=== PATIENT | male | born 1960 | race African-American/Black ===

== ENCOUNTER 2018-11-29 10:57 | Inpatient (IN) ==
[2018-11-29] MEDS ORDERED: SODIUM CHLORIDE 0.9% 1,000 ML IV STA (13:43)
[2018-11-29 14:14] LABS: Basophils # 0.1 10*3/uL (0.0-0.2); Basophils % 0.7 % (0.0-0.8); Eosinophils # 0.2 10*3/uL (0.0-0.87); Hematocrit 44.4 VOL% (42.0-52.0); Hemoglobin 14.2 GM/DL (14.0-18.0); Immature Granulocytes % 0.5 %; Immature Granulocytes Absolute 0.04 #; Mean Corpuscular Volume 91.5 FL (87-102); Mean Platelet Volume 12.2 FL (9.6-12.0); Monocytes % 5.7 % (1.7-12.7); Neutrophils % 55.1 % (38.7-73.9); Platelet Count 179 T/CUMM (130-400); Red Blood Count 4.85 MC/CUMM (3.8-5.5); Red Cell Distribution Width 12.8 % (9.3-17.3); White Blood Count 8.4 T/CUMM (4-12)
[2018-11-29 14:37] LABS: Alanine Aminotransferase 46 U/L (16-61); Alkaline Phosphatase 90 U/L (45-117); Aspartate Amino Transferase 29 U/L (0-37); Bilirubin,Total < 0.39 MG/DL (0.2-1.0); Blood Urea Nitrogen 24 MG/DL (7-18); Calcium 9.5 MG/DL (8.5-10.1); Glucose 272 MG/DL (74-106)
[2018-11-29] MEDS ORDERED: hydrALAZINE 20 MG/1 ML VIAL IV STA ×2 (14:51→16:40)
[2018-11-29] MEDS ORDERED: DOCUSATE SODIUM 100 MG CAPSULE PO PRN (15:08)
[2018-11-29] MEDS ORDERED: GLUCAGON 1 MG VIAL IM PRN (15:08)
[2018-11-29] MEDS ORDERED: DEXTROSE 50% 25 GM/50 ML VIAL IV PRN (15:08)
[2018-11-29] MEDS ORDERED: ONDANSETRON 4 MG/2 ML VIAL IV PRN (15:08)
[2018-11-29] MEDS ORDERED: HYDROmorphone 2 MG/1 ML VIAL IV PRN (15:17)
[2018-11-29] MEDS ORDERED: VANCOMYCIN INJ 1,000 MG in SODIUM CHLORIDE 0.9% 250 ML IV SCH ×2 (15:30→16:00)
[2018-11-29] MEDS ORDERED: cefTRIAXone 1,000 MG in SODIUM CHLORIDE 0.9% 100 ML IV SCH (15:30)
[2018-11-29] MEDS ORDERED: SODIUM CHLORIDE 0.9% 1,000 ML IV SCH (15:30)
[2018-11-29] MEDS ORDERED: ENOXAPARIN 30 MG/0.3 ML SYRINGE SUBCUT SCH (15:30)
[2018-11-29] MEDS ORDERED: hydrALAZINE 20 MG/1 ML VIAL ONE (15:40)
[2018-11-29 16:05] LABS: Risk Ratio 6.73; Thyroid Stimulating Hormone 0.924 uIU/ml (0.358-3.74)
[2018-11-29] MEDS ORDERED: ceFAZolin 1,000 MG VIAL ONE (16:07)
[2018-11-29] MEDS ORDERED: SODIUM CHLORIDE 0.9% 100 ML IV ONE (16:10)
[2018-11-29] MEDS: cefOXitin 1,000 MG in SYRINGE 1 EACH IV SCH ×2 (16:16→23:28)
[2018-11-29] MEDS ORDERED: NICOTINE 21 MG/24 HR PATCH TRANSDERM PRN (18:00)
[2018-11-29] MEDS: INSULIN LISPRO 100 UNIT/ML SUBCUT SCH ×2 (18:44→22:01)
[2018-11-29] MEDS ORDERED: VANCOMYCIN INJ 1,500 MG in SODIUM CHLORIDE 0.9% 500 ML IV SCH (20:00)
[2018-11-29] MEDS: GABAPENTIN 300 MG CAPSULE PO SCH (20:39)
[2018-11-29] MEDS: CARVEDILOL 12.5 MG TABLET PO SCH (20:39)
[2018-11-29] MEDS ORDERED: SIMVASTATIN 40 MG TABLET PO SCH (21:00)
[2018-11-29] MEDS ORDERED: INSULIN GLARGINE 100 UNIT/ML SUBCUT SCH (21:00)
[2018-11-30 05:12] LABS: Basophils # 0.1 10*3/uL (0.0-0.2); Basophils % 0.6 % (0.0-0.8); Eosinophils # 0.1 10*3/uL (0.0-0.87); Eosinophils % 1.6 % (0.00-10.9); Hemoglobin 12.7 GM/DL (14.0-18.0); Immature Granulocytes % 0.4 %; Immature Granulocytes Absolute 0.04 #; Lymphocytes # 2.7 10*3/uL (1.4-4.0); Lymphocytes % 29.5 % (21.2-54.2); Mean Corpuscular HGB Conc 31.8 GM/DL (32-36); Mean Corpuscular Volume 92.8 FL (87-102); Mean Platelet Volume 12.7 FL (9.6-12.0); Monocytes % 7.3 % (1.7-12.7); Neutrophils % 60.6 % (38.7-73.9); Platelet Count 161 T/CUMM (130-400); Red Blood Count 4.31 MC/CUMM (3.8-5.5); Red Cell Distribution Width 12.9 % (9.3-17.3)
[2018-11-30 05:34] LABS: Albumin 3.5 G/DL (3.4-5.0); Bilirubin,Total 0.4 MG/DL (0.2-1.0); Calcium 8.8 MG/DL (8.5-10.1); Osmolality,Calculated 281.7 MOS/KG (273-304); Total Protein 7.2 G/DL (6.4-8.3)
[2018-11-30] MEDS: INSULIN LISPRO 100 UNIT/ML SUBCUT SCH ×2 (07:36→12:21)
[2018-11-30] MEDS ORDERED: PANTOPRAZOLE 40 MG TABLET PO SCH (09:00)
[2018-11-30] MEDS ORDERED: hydroCHLOROthiazide 12.5 MG CAPSULE PO SCH (09:00)
[2018-11-30] MEDS: GABAPENTIN 300 MG CAPSULE PO SCH (09:23)
[2018-11-30] MEDS ORDERED: LIDOCAINE 1% 20 ML VIAL ONE (09:24)
[2018-11-30] MEDS: CARVEDILOL 12.5 MG TABLET PO SCH ×2 (09:32→11:41)
[2018-11-30] MEDS: cefOXitin 1,000 MG in SYRINGE 1 EACH IV SCH (09:32)
[2018-11-30] MEDS ORDERED: SODIUM CHLORIDE 0.9% 250 ML IV SCH (10:00)
[2018-11-30] MEDS ORDERED: MIDAZOLAM 2 MG/2 ML VIAL ONE (10:54)
[2018-11-30] MEDS ORDERED: LABETALOL 100 MG/20 ML VIAL IV ONE (10:55)
[2018-11-30] MEDS ORDERED: KETAMINE 500 MG/10 ML VIAL ONE (10:55)
[2018-11-30 11:22] VITALS: BP 189/95
== END 2018-11-30 16:40 | disposition home or self-care (01) | DRG 617 ==
LOC: N.ED 10:57 → SUATTDRO 15:08 → SUPCPDRO 15:08 → N.EDINP 15:08 → N.3E 17:28
PROVIDERS: ADMIT Internal Medicine; ATTEND Hospitalist

== ENCOUNTER 2019-01-04 13:11 | Inpatient (IN) ==
[2019-01-04 15:50] LABS: Basophils # 0.1 10*3/uL (0.0-0.2); Basophils % 0.5 % (0.0-0.8); Eosinophils # 0.1 10*3/uL (0.0-0.87); Eosinophils % 0.6 % (0.00-10.9); Hematocrit 43.2 VOL% (42.0-52.0); Hemoglobin 13.1 GM/DL (14.0-18.0); Immature Granulocytes % 0.9 %; Immature Granulocytes Absolute 0.18 #; Lymphocytes # 2.6 10*3/uL (1.4-4.0); Lymphocytes % 13.7 % (21.2-54.2); Mean Corpuscular HGB Conc 30.3 GM/DL (32-36); Mean Corpuscular Volume 93.3 FL (87-102); Mean Platelet Volume 10.9 FL (9.6-12.0); Monocytes % 6.5 % (1.7-12.7); Neutrophils % 77.8 % (38.7-73.9); Platelet Count 271 T/CUMM (130-400); Red Blood Count 4.63 MC/CUMM (3.8-5.5); Red Cell Distribution Width 12.7 % (9.3-17.3); White Blood Count 19.1 T/CUMM (4-12)
[2019-01-04] MEDS ORDERED: LACTATED RINGERS 1,000 ML IV ONE (16:02)
[2019-01-04] MEDS ORDERED: PIPERACILLIN/TAZOBACTAM 3,375 MG in SODIUM CHLORIDE 0.9% 100 ML IV STA ×2 (16:04→16:27)
[2019-01-04 16:14] LABS: Alanine Aminotransferase 31 U/L (16-61); Albumin 3.3 G/DL (3.4-5.0); Alkaline Phosphatase 100 U/L (45-117); Aspartate Amino Transferase 22 U/L (0-37); Bilirubin,Total < 0.39 MG/DL (0.2-1.0); Blood Urea Nitrogen 45 MG/DL (7-18); Calcium 10.2 MG/DL (8.5-10.1); Glucose 298 MG/DL (74-106); Osmolality,Calculated 284.7 MOS/KG (273-304); Total Protein 9.8 G/DL (6.4-8.3)
[2019-01-04 16:19] LABS: Apearance,Urine CLEAR (Clear); Bilirubin,Urine Negative (Negative); Blood, Urine Small mg/dL (Negative); Glucose,Urine (UA) >=500 mg/dL (Negative); Ketones,Urine Negative (Negative); Mucus,Urine Occasional /LPF (Occasional); Nitrite,Urine Negative (Negative); Protein,Urine Negative; RBC,Urine 2 /HPF (0-4); Squamous Epithelial Cell,Urine Occasional /HPF (0-10); Urine Color Yellow (Yellow); Urine Specific Gravity 1.022 (1.001-1.035); Urine Urobilinogen < 2.0 EU/DL (0.2-1.0); WBC,Urine 1 /HPF (0-6)
[2019-01-04] MEDS ORDERED: ACETAMINOPHEN 325 MG TABLET PO PRN (17:22)
[2019-01-04] MEDS ORDERED: ONDANSETRON 4 MG/2 ML VIAL IV PRN (17:22)
[2019-01-04] MEDS ORDERED: DEXTROSE 50% 25 GM/50 ML VIAL IV PRN (17:22)
[2019-01-04] MEDS ORDERED: GLUCAGON 1 MG VIAL IM PRN (17:22)
[2019-01-04] MEDS ORDERED: INSULIN REGULAR 100 UNIT/ML IV STA (17:26)
[2019-01-04] MEDS ORDERED: SODIUM POLYSTYRENE SULFATE 15 GM/60 ML BOTTLE PO ONE (17:26)
[2019-01-04] MEDS ORDERED: CALCIUM GLUCONATE 2,000 MG in SODIUM CHLORIDE 0.9% 100 ML IV ONE (17:27)
[2019-01-04] MEDS ORDERED: INSULIN REGULAR 100 UNIT/ML ONE (18:36)
[2019-01-04] MEDS: SODIUM CHLORIDE 0.9% 1,000 ML IV SCH (22:27)
[2019-01-04] MEDS: INSULIN LISPRO 100 UNIT/ML SUBCUT SCH (22:38)
[2019-01-05] MEDS: MORPHINE 4 MG/1 ML VIAL IV PRN ×4 (00:40→20:11)
[2019-01-05 04:44] LABS: Basophils # 0.1 10*3/uL (0.0-0.2); Basophils % 0.5 % (0.0-0.8); Eosinophils # 0.2 10*3/uL (0.0-0.87); Eosinophils % 0.9 % (0.00-10.9); Hematocrit 38.1 VOL% (42.0-52.0); Hemoglobin 11.9 GM/DL (14.0-18.0); Immature Granulocytes % 0.5 %; Immature Granulocytes Absolute 0.08 #; Lymphocytes # 3.2 10*3/uL (1.4-4.0); Lymphocytes % 18.5 % (21.2-54.2); Mean Corpuscular HGB Conc 31.2 GM/DL (32-36); Mean Corpuscular Volume 93.6 FL (87-102); Mean Platelet Volume 11.2 FL (9.6-12.0); Neutrophils % 72.6 % (38.7-73.9); Platelet Count 276 T/CUMM (130-400); Red Blood Count 4.07 MC/CUMM (3.8-5.5); Red Cell Distribution Width 12.6 % (9.3-17.3); White Blood Count 17.5 T/CUMM (4-12)
[2019-01-05 05:26] LABS: Calcium 9.8 MG/DL (8.5-10.1); Osmolality,Calculated 274.5 MOS/KG (273-304); Risk Ratio 4.12; Thyroid Stimulating Hormone 0.774 uIU/ml (0.358-3.74); VLDL CHOLESTEROL 44.8 MG/DL
[2019-01-05] MEDS ORDERED: SODIUM POLYSTYRENE SULFATE 15 GM/60 ML BOTTLE PO ONE ×2 (05:46→07:38)
[2019-01-05] MEDS: SODIUM CHLORIDE 0.9% 1,000 ML IV SCH (06:26)
[2019-01-05] MEDS ORDERED: GLUCAGON 1 MG VIAL IV ONE (07:37)
[2019-01-05] MEDS ORDERED: INSULIN REGULAR 100 UNIT/ML IV ONE (07:37)
[2019-01-05] MEDS ORDERED: SODIUM BICARBONATE 50 MEQ/50 ML VIAL IV ONE (08:19)
[2019-01-05] MEDS: PIPERACILLIN/TAZOBACTAM 3,375 MG in SODIUM CHLORIDE 0.9% 100 ML IV SCH ×2 (10:05→17:56)
[2019-01-05] MEDS: SODIUM CHLORIDE 23.4% CONC INJ 38.5 MEQ, SODIUM BICARB INJ 100 MEQ in STERILE WATER INJ... IV SCH (10:05)
[2019-01-05] MEDS: NICOTINE 21 MG/24 HR PATCH TRANSDERM SCH (10:05)
[2019-01-05] MEDS: PANTOPRAZOLE 40 MG TABLET PO SCH (10:41)
[2019-01-05] MEDS: INSULIN LISPRO 100 UNIT/ML SUBCUT SCH ×4 (10:41→21:57)
[2019-01-06] MEDS: PIPERACILLIN/TAZOBACTAM 3,375 MG in SODIUM CHLORIDE 0.9% 100 ML IV SCH ×3 (01:26→17:11)
[2019-01-06 05:16] LABS: Basophils # 0.1 10*3/uL (0.0-0.2); Basophils % 0.5 % (0.0-0.8); Eosinophils # 0.1 10*3/uL (0.0-0.87); Eosinophils % 0.5 % (0.00-10.9); Hematocrit 34.9 VOL% (42.0-52.0); Hemoglobin 10.9 GM/DL (14.0-18.0); Immature Granulocytes % 1.2 %; Immature Granulocytes Absolute 0.25 #; Lymphocytes # 3.1 10*3/uL (1.4-4.0); Lymphocytes % 14.6 % (21.2-54.2); Mean Corpuscular HGB Conc 31.2 GM/DL (32-36); Mean Corpuscular Volume 92.1 FL (87-102); Neutrophils % 75.2 % (38.7-73.9); Platelet Count 339 T/CUMM (130-400); Red Blood Count 3.79 MC/CUMM (3.8-5.5); Red Cell Distribution Width 12.6 % (9.3-17.3); White Blood Count 21.4 T/CUMM (4-12)
[2019-01-06] MEDS: SODIUM CHLORIDE 23.4% CONC INJ 38.5 MEQ, SODIUM BICARB INJ 100 MEQ in STERILE WATER INJ... IV SCH ×2 (05:36→10:26)
[2019-01-06] MEDS: MORPHINE 4 MG/1 ML VIAL IV PRN ×6 (05:36→21:31)
[2019-01-06 05:42] LABS: Osmolality,Calculated 275.2 MOS/KG (273-304)
[2019-01-06 05:44] LABS: Band Neutrophils 1 % (0-10); Lymphocytes 15 % (20-55); Segmented Neutrophils 79 % (50-85)
[2019-01-06 05:45] LABS: Platelet Estimate Adequate; Total Cells Counted 100
[2019-01-06] MEDS: INSULIN LISPRO 100 UNIT/ML SUBCUT SCH ×4 (08:39→21:28)
[2019-01-06] MEDS: PANTOPRAZOLE 40 MG TABLET PO SCH (08:42)
[2019-01-06] MEDS: NICOTINE 21 MG/24 HR PATCH TRANSDERM SCH (08:42)
[2019-01-06] MEDS ORDERED: BUPIVACAINE MPF 0.25% 30 ML VIAL ONE (09:49)
[2019-01-06] MEDS ORDERED: LIDOCAINE 1% 20 ML VIAL ONE (09:49)
[2019-01-06] MEDS ORDERED: FAMOTIDINE 20 MG/2 ML VIAL IV ONE (10:04)
[2019-01-06] MEDS ORDERED: PROPOFOL 200 MG/20 ML VIAL IV ONE (11:15)
[2019-01-06] MEDS ORDERED: MIDAZOLAM 2 MG/2 ML VIAL ONE (11:16)
[2019-01-06] MEDS ORDERED: METOPROLOL TARTRATE 5 MG/5 ML VIAL IV ONE (11:16)
[2019-01-06] MEDS ORDERED: fentaNYL 100 MCG/2 ML VIAL ONE (11:16)
[2019-01-06] MEDS ORDERED: SEVOFLURANE 1 UNIT/15 MINUTE INH ONE (11:16)
[2019-01-06] MEDS ORDERED: SODIUM CHLORIDE 0.9% 250 ML IV ONE (11:16)
[2019-01-07] MEDS: PIPERACILLIN/TAZOBACTAM 3,375 MG in SODIUM CHLORIDE 0.9% 100 ML IV SCH ×3 (01:17→16:31)
[2019-01-07] MEDS: MORPHINE 4 MG/1 ML VIAL IV PRN ×4 (01:18→19:28)
[2019-01-07 06:04] LABS: Basophils # 0.1 10*3/uL (0.0-0.2); Basophils % 0.4 % (0.0-0.8); Eosinophils # 0.1 10*3/uL (0.0-0.87); Eosinophils % 0.6 % (0.00-10.9); Hematocrit 32.6 VOL% (42.0-52.0); Immature Granulocytes % 1.7 %; Immature Granulocytes Absolute 0.29 #; Lymphocytes # 2.6 10*3/uL (1.4-4.0); Lymphocytes % 14.9 % (21.2-54.2); Mean Corpuscular HGB Conc 30.7 GM/DL (32-36); Mean Corpuscular Volume 92.1 FL (87-102); Mean Platelet Volume 10.8 FL (9.6-12.0); Monocytes % 7.5 % (1.7-12.7); Neutrophils % 74.9 % (38.7-73.9); Platelet Count 294 T/CUMM (130-400); Red Blood Count 3.54 MC/CUMM (3.8-5.5); Red Cell Distribution Width 12.2 % (9.3-17.3); White Blood Count 17.5 T/CUMM (4-12)
[2019-01-07 06:21] LABS: Calcium 9.7 MG/DL (8.5-10.1); Osmolality,Calculated 270.2 MOS/KG (273-304)
[2019-01-07] MEDS: NICOTINE 21 MG/24 HR PATCH TRANSDERM SCH (09:11)
[2019-01-07] MEDS: PANTOPRAZOLE 40 MG TABLET PO SCH (09:12)
[2019-01-07] MEDS: SODIUM HYPOCHLORITE 0.25% IRRIG 473 ML BOTTLE TOP SCH (10:29)
[2019-01-07] MEDS: INSULIN LISPRO 100 UNIT/ML SUBCUT SCH ×4 (10:29→20:45)
[2019-01-07] MEDS ORDERED: SIMETHICONE CHEW 80 MG TABLET PO PRN (20:05)
[2019-01-07] MEDS: DOCUSATE SODIUM 100 MG CAPSULE PO SCH (21:01)
[2019-01-07] MEDS: POLYETHYLENE GLYCOL POWDER 17 GM PACK PO SCH (21:02)
[2019-01-08] MEDS: PIPERACILLIN/TAZOBACTAM 3,375 MG in SODIUM CHLORIDE 0.9% 100 ML IV SCH ×3 (00:07→16:51)
[2019-01-08] MEDS: MORPHINE 4 MG/1 ML VIAL IV PRN ×2 (02:26→10:32)
[2019-01-08 04:47] LABS: Basophils # 0.1 10*3/uL (0.0-0.2); Basophils % 0.4 % (0.0-0.8); Eosinophils # 0.1 10*3/uL (0.0-0.87); Eosinophils % 0.7 % (0.00-10.9); Hemoglobin 9.9 GM/DL (14.0-18.0); Immature Granulocytes % 0.7 %; Lymphocytes # 2.2 10*3/uL (1.4-4.0); Lymphocytes % 16.2 % (21.2-54.2); Mean Corpuscular HGB Conc 30.9 GM/DL (32-36); Mean Corpuscular Volume 91.2 FL (87-102); Mean Platelet Volume 10.9 FL (9.6-12.0); Monocytes % 7.3 % (1.7-12.7); Neutrophils % 74.7 % (38.7-73.9); Platelet Count 290 T/CUMM (130-400); Red Blood Count 3.51 MC/CUMM (3.8-5.5); Red Cell Distribution Width 12.3 % (9.3-17.3); White Blood Count 13.4 T/CUMM (4-12)
[2019-01-08 05:09] LABS: Calcium 9.7 MG/DL (8.5-10.1); Osmolality,Calculated 269.4 MOS/KG (273-304)
[2019-01-08] MEDS: INSULIN LISPRO 100 UNIT/ML SUBCUT SCH ×4 (08:55→21:34)
[2019-01-08] MEDS: POLYETHYLENE GLYCOL POWDER 17 GM PACK PO SCH ×2 (08:56→21:29)
[2019-01-08] MEDS: DOCUSATE SODIUM 100 MG CAPSULE PO SCH ×2 (08:56→21:29)
[2019-01-08] MEDS: PANTOPRAZOLE 40 MG TABLET PO SCH (08:56)
[2019-01-08] MEDS: NICOTINE 21 MG/24 HR PATCH TRANSDERM SCH (09:01)
[2019-01-08] MEDS: SODIUM HYPOCHLORITE 0.25% IRRIG 473 ML BOTTLE TOP SCH (10:34)
[2019-01-08] MEDS: amLODIPine 5 MG TABLET PO SCH (16:53)
[2019-01-08] MEDS: CARVEDILOL 12.5 MG TABLET PO SCH (21:28)
[2019-01-09] MEDS: PIPERACILLIN/TAZOBACTAM 3,375 MG in SODIUM CHLORIDE 0.9% 100 ML IV SCH ×2 (00:50→09:33)
[2019-01-09 04:18] LABS: Basophils # 0.1 10*3/uL (0.0-0.2); Basophils % 0.5 % (0.0-0.8); Eosinophils # 0.2 10*3/uL (0.0-0.87); Eosinophils % 1.2 % (0.00-10.9); Hematocrit 30.8 VOL% (42.0-52.0); Hemoglobin 9.8 GM/DL (14.0-18.0); Immature Granulocytes % 0.7 %; Immature Granulocytes Absolute 0.09 #; Lymphocytes # 2.9 10*3/uL (1.4-4.0); Lymphocytes % 22.5 % (21.2-54.2); Mean Corpuscular HGB Conc 31.8 GM/DL (32-36); Mean Corpuscular Volume 90.1 FL (87-102); Mean Platelet Volume 10.8 FL (9.6-12.0); Monocytes % 7.3 % (1.7-12.7); Neutrophils % 67.8 % (38.7-73.9); Platelet Count 314 T/CUMM (130-400); Red Blood Count 3.42 MC/CUMM (3.8-5.5); Red Cell Distribution Width 12.2 % (9.3-17.3); White Blood Count 12.8 T/CUMM (4-12)
[2019-01-09 04:38] LABS: Calcium 9.8 MG/DL (8.5-10.1); Osmolality,Calculated 276.1 MOS/KG (273-304)
[2019-01-09 05:12] LABS: Platelet Estimate Adequate
[2019-01-09] MEDS: amLODIPine 5 MG TABLET PO SCH (09:31)
[2019-01-09] MEDS: CARVEDILOL 12.5 MG TABLET PO SCH (09:31)
[2019-01-09] MEDS: PANTOPRAZOLE 40 MG TABLET PO SCH (09:31)
[2019-01-09] MEDS: INSULIN LISPRO 100 UNIT/ML SUBCUT SCH ×2 (09:33→11:32)
[2019-01-09] MEDS: DOCUSATE SODIUM 100 MG CAPSULE PO SCH (09:38)
[2019-01-09] MEDS: POLYETHYLENE GLYCOL POWDER 17 GM PACK PO SCH (09:38)
[2019-01-09] MEDS: NICOTINE 21 MG/24 HR PATCH TRANSDERM SCH (09:38)
[2019-01-09] MEDS: SODIUM HYPOCHLORITE 0.25% IRRIG 473 ML BOTTLE TOP SCH (11:18)
[2019-01-09 11:32] VITALS: BP 155/76
== END 2019-01-09 14:38 | disposition home health service (06) | DRG 240 ==
LOC: N.ED 13:11 → N.EDINP 17:21 → SUATTDRO 17:21 → N.3E 19:09
PROVIDERS: ADMIT Internal Medicine; ATTEND Internal Medicine

== ENCOUNTER 2019-02-07 08:20 | Inpatient (IN) ==
[~2019-02-07 08:20] MED LIST: HEPARIN/NACL 0.9% 2 UNITS/ML 2,000 ML IV ONE
[2019-02-07] MEDS ORDERED: ONDANSETRON 4 MG/2 ML VIAL IV ONE (08:25)
[2019-02-07] MEDS ORDERED: fentaNYL 100 MCG/2 ML VIAL IV ONE (08:25)
[2019-02-07] MEDS ORDERED: HEPARIN 5,000 UNIT/1 ML VIAL IV ONE (08:25)
[2019-02-07] MEDS ORDERED: DIAZEPAM 5 MG TABLET PO ONE (08:25)
[2019-02-07] MEDS ORDERED: MIDAZOLAM 2 MG/2 ML VIAL IV ONE (08:25)
[2019-02-07 08:47] LABS: Basophils # 0.1 10*3/uL (0.0-0.2); Basophils % 0.8 % (0.0-0.8); Eosinophils # 0.1 10*3/uL (0.0-0.87); Eosinophils % 1.2 % (0.00-10.9); Hematocrit 38.3 VOL% (42.0-52.0); Hemoglobin 11.8 GM/DL (14.0-18.0); Immature Granulocytes % 0.6 %; Immature Granulocytes Absolute 0.06 #; Lymphocytes # 2.3 10*3/uL (1.4-4.0); Lymphocytes % 23.1 % (21.2-54.2); Mean Corpuscular HGB Conc 30.8 GM/DL (32-36); Mean Corpuscular Volume 91.8 FL (87-102); Mean Platelet Volume 10.9 FL (9.6-12.0); Monocytes % 8.1 % (1.7-12.7); Neutrophils % 66.2 % (38.7-73.9); Platelet Count 236 T/CUMM (130-400); Red Blood Count 4.17 MC/CUMM (3.8-5.5); Red Cell Distribution Width 13.9 % (9.3-17.3)
[2019-02-07 08:56] LABS: PT Patient Result 10.5 SECS; Partial Thromboplastin Time 25.8 SECS (0-40)
[2019-02-07] MEDS: SODIUM CHLORIDE 0.45% 1,000 ML IV SCH (09:15)
[2019-02-07 09:17] LABS: Alanine Aminotransferase 27 U/L (16-61); Albumin 3.4 G/DL (3.4-5.0); Alkaline Phosphatase 85 U/L (45-117); Aspartate Amino Transferase 20 U/L (0-37); Bilirubin,Total < 0.39 MG/DL (0.2-1.0); Blood Urea Nitrogen 12 MG/DL (7-18); Calcium 9.7 MG/DL (8.5-10.1); Glucose 152 MG/DL (74-106); Osmolality,Calculated 285.1 MOS/KG (273-304); Total Protein 8.8 G/DL (6.4-8.3)
[2019-02-07] MEDS ORDERED: DIAZEPAM 5 MG TABLET ONE (09:41)
[2019-02-07] MEDS ORDERED: fentaNYL 100 MCG/2 ML VIAL ONE (10:02)
[2019-02-07] MEDS ORDERED: MIDAZOLAM 2 MG/2 ML VIAL ONE (10:02)
[2019-02-07] MEDS ORDERED: HEPARIN 5,000 UNIT/1 ML VIAL ONE (10:03)
[2019-02-07] MEDS ORDERED: DEXTROSE 50% 25 GM/50 ML VIAL IV PRN (11:16)
[2019-02-07] MEDS ORDERED: GLUCAGON 1 MG VIAL IM PRN (11:16)
[2019-02-07] MEDS: HYDROmorphone 2 MG/1 ML VIAL IV PRN (17:39)
[2019-02-07] MEDS: INSULIN REGULAR 100 UNIT/ML SUBCUT SCH ×2 (17:52→22:16)
[2019-02-08] MEDS: HYDROmorphone 2 MG/1 ML VIAL IV PRN ×8 (00:32→22:38)
[2019-02-08] MEDS ORDERED: VANCOMYCIN 500 MG VIAL ONE (08:40)
[2019-02-08] MEDS ORDERED: HEPARIN 5,000 UNIT/1 ML VIAL ONE (08:40)
[2019-02-08] MEDS: INSULIN REGULAR 100 UNIT/ML SUBCUT SCH ×4 (08:52→20:58)
[2019-02-08] MEDS: SODIUM CHLORIDE 0.45% 1,000 ML IV SCH (08:53)
[2019-02-08] MEDS ORDERED: PHENYLEPHRINE DRIP 20 MG/250 ML PREMIX IV ONE (09:25)
[2019-02-08] MEDS ORDERED: VANCOMYCIN 1,000 MG VIAL ONE (09:51)
[2019-02-08] MEDS ORDERED: PROTAMINE SULFATE 50 MG/5 ML VIAL IV ONE (11:38)
[2019-02-08] MEDS: LACTATED RINGERS 1,000 ML IV SCH ×2 (12:30→17:26)
[2019-02-08] MEDS ORDERED: TISSUE ADHESIVE 1 EACH APPLICATOR TOP ONE (13:06)
[2019-02-08] MEDS ORDERED: ONDANSETRON 4 MG/2 ML VIAL IV PRN ×2 (13:17→14:03)
[2019-02-08] MEDS ORDERED: DESFLURANE 1 UNIT/15 MINUTE INH ONE (13:44)
[2019-02-08] MEDS ORDERED: ROCURONIUM 100 MG/10 ML VIAL IV ONE (13:45)
[2019-02-08] MEDS ORDERED: ETOMIDATE 40 MG/20 ML VIAL IV ONE (13:45)
[2019-02-08] MEDS ORDERED: GLYCOPYRROLATE 0.4 MG/2 ML VIAL ONE (13:45)
[2019-02-08] MEDS ORDERED: ONDANSETRON 4 MG/2 ML VIAL ONE (13:45)
[2019-02-08] MEDS ORDERED: METOPROLOL TARTRATE 5 MG/5 ML VIAL IV ONE (13:45)
[2019-02-08] MEDS ORDERED: fentaNYL 100 MCG/2 ML VIAL ONE (13:45)
[2019-02-08] MEDS ORDERED: NEOSTIGMINE 10 MG/10 ML VIAL ONE (13:46)
[2019-02-08] MEDS ORDERED: LACTATED RINGERS 1,000 ML IV ONE (13:46)
[2019-02-08 13:56] LABS: Hemoglobin 10.6 GM/DL (14.0-18.0)
[2019-02-08 14:22] LABS: Calcium 8.6 MG/DL (8.5-10.1); Osmolality,Calculated 274.2 MOS/KG (273-304)
[2019-02-08] MEDS: GABAPENTIN 300 MG CAPSULE PO SCH ×2 (16:15→20:57)
[2019-02-08] MEDS: glipiZIDE 5 MG TABLET PO SCH (16:15)
[2019-02-08] MEDS ORDERED: VANCOMYCIN INJ 1,000 MG in SODIUM CHLORIDE 0.9% 250 ML IV ONE (16:40)
[2019-02-08] MEDS: CARVEDILOL 12.5 MG TABLET PO SCH (20:57)
[2019-02-08] MEDS: CILOSTAZOL 100 MG TABLET PO SCH (20:57)
[2019-02-09] MEDS: HYDROmorphone 2 MG/1 ML VIAL IV PRN ×2 (01:14→05:04)
[2019-02-09] MEDS: LACTATED RINGERS 1,000 ML IV SCH ×3 (01:19→20:00)
[2019-02-09 04:52] LABS: Hematocrit 30.6 VOL% (42.0-52.0); Hemoglobin 9.6 GM/DL (14.0-18.0)
[2019-02-09 05:20] LABS: Calcium 9.1 MG/DL (8.5-10.1); Osmolality,Calculated 263.7 MOS/KG (273-304)
[2019-02-09] MEDS: glipiZIDE 5 MG TABLET PO SCH ×2 (08:26→17:55)
[2019-02-09] MEDS: CLOPIDOGREL 75 MG TABLET PO SCH (08:26)
[2019-02-09] MEDS: amLODIPine 5 MG TABLET PO SCH (08:26)
[2019-02-09] MEDS: CILOSTAZOL 100 MG TABLET PO SCH ×2 (08:26→21:18)
[2019-02-09] MEDS: CARVEDILOL 12.5 MG TABLET PO SCH ×2 (08:26→21:19)
[2019-02-09] MEDS: ASPIRIN CHEW 81 MG TABLET PO SCH (08:26)
[2019-02-09] MEDS: PANTOPRAZOLE 40 MG TABLET PO SCH (08:27)
[2019-02-09] MEDS: SODIUM HYPOCHLORITE 0.25% IRRIG 473 ML BOTTLE TOP SCH (08:27)
[2019-02-09] MEDS: GABAPENTIN 300 MG CAPSULE PO SCH ×3 (08:27→21:18)
[2019-02-09] MEDS: INSULIN REGULAR 100 UNIT/ML SUBCUT SCH ×4 (08:28→21:19)
[2019-02-09] MEDS ORDERED: HYDROmorphone 2 MG/1 ML VIAL IM PRN (15:58)
[2019-02-09] MEDS: SODIUM CHLORIDE 0.45% 1,000 ML IV SCH (20:00)
[2019-02-10] MEDS: CILOSTAZOL 100 MG TABLET PO SCH (09:27)
[2019-02-10] MEDS: glipiZIDE 5 MG TABLET PO SCH (09:27)
[2019-02-10] MEDS: PANTOPRAZOLE 40 MG TABLET PO SCH (09:27)
[2019-02-10] MEDS: GABAPENTIN 300 MG CAPSULE PO SCH (09:27)
[2019-02-10] MEDS: amLODIPine 5 MG TABLET PO SCH (09:27)
[2019-02-10] MEDS: CLOPIDOGREL 75 MG TABLET PO SCH (09:28)
[2019-02-10] MEDS: ASPIRIN CHEW 81 MG TABLET PO SCH (09:28)
[2019-02-10] MEDS: CARVEDILOL 12.5 MG TABLET PO SCH (09:28)
[2019-02-10] MEDS: INSULIN REGULAR 100 UNIT/ML SUBCUT SCH ×2 (09:28→12:36)
[2019-02-10] MEDS: SODIUM HYPOCHLORITE 0.25% IRRIG 473 ML BOTTLE TOP SCH (09:32)
[2019-02-10 11:12] VITALS: BP 155/88
== END 2019-02-10 13:09 | disposition home or self-care (01) | DRG 254 ==
LOC: N.RAD 08:20 → N.SDSINP 08:21 → N.3E 11:30
PROVIDERS: ADMIT Surgery; ATTEND Surgery

== ENCOUNTER 2019-03-07 12:02 | Inpatient (IN) ==
[2019-03-07 13:14] LABS: Basophils # 0.1 10*3/uL (0.0-0.2); Basophils % 0.7 % (0.0-0.8); Eosinophils # 0.1 10*3/uL (0.0-0.87); Eosinophils % 0.8 % (0.00-10.9); Hematocrit 32.3 VOL% (42.0-52.0); Hemoglobin 9.8 GM/DL (14.0-18.0); Immature Granulocytes % 0.5 %; Immature Granulocytes Absolute 0.06 #; Lymphocytes # 2.6 10*3/uL (1.4-4.0); Lymphocytes % 20.2 % (21.2-54.2); Mean Corpuscular HGB Conc 30.3 GM/DL (32-36); Mean Corpuscular Volume 87.1 FL (87-102); Mean Platelet Volume 10.5 FL (9.6-12.0); Monocytes % 5.8 % (1.7-12.7); Platelet Count 401 T/CUMM (130-400); Red Blood Count 3.71 MC/CUMM (3.8-5.5); Red Cell Distribution Width 14.1 % (9.3-17.3); White Blood Count 12.7 T/CUMM (4-12)
[2019-03-07 13:30] LABS: Alanine Aminotransferase 18 U/L (16-61); Alkaline Phosphatase 81 U/L (45-117); Aspartate Amino Transferase 13 U/L (0-37); Bilirubin,Total < 0.39 MG/DL (0.2-1.0); Blood Urea Nitrogen 13 MG/DL (7-18); Calcium 9.5 MG/DL (8.5-10.1); Glucose 81 MG/DL (74-106); Osmolality,Calculated 277.4 MOS/KG (273-304); Total Protein 8.7 G/DL (6.4-8.3)
[2019-03-07] MEDS ORDERED: SODIUM HYPOCHLORITE 0.25% IRRIG 473 ML BOTTLE TOP STA (14:32)
[2019-03-07] MEDS ORDERED: HYDROmorphone 2 MG/1 ML VIAL IV STA (14:35)
[2019-03-07] MEDS ORDERED: ONDANSETRON 4 MG/2 ML VIAL IV STA (14:35)
[2019-03-07] MEDS ORDERED: BISACODYL 5 MG TABLET PO PRN (14:59)
[2019-03-07] MEDS ORDERED: KETOROLAC 10 MG TABLET PO PRN (14:59)
[2019-03-07] MEDS ORDERED: GLUCAGON 1 MG VIAL IM PRN (14:59)
[2019-03-07] MEDS ORDERED: DEXTROSE 50% 25 GM/50 ML VIAL IV PRN (14:59)
[2019-03-07] MEDS ORDERED: ONDANSETRON 4 MG/2 ML VIAL IV PRN (14:59)
[2019-03-07] MEDS ORDERED: ACETAMINOPHEN 325 MG TABLET PO PRN (14:59)
[2019-03-07] MEDS ORDERED: DIPHENHYDRAMINE ACETAMINOPHEN PO PRN (15:03)
[2019-03-07] MEDS ORDERED: hydrALAZINE 20 MG/1 ML VIAL IV PRN (15:49)
[2019-03-07] MEDS ORDERED: glipiZIDE 5 MG TABLET PO SCH (16:30)
[2019-03-07] MEDS: INSULIN LISPRO 100 UNIT/ML SUBCUT SCH (18:00)
[2019-03-07] MEDS: LACTATED RINGERS 1,000 ML IV SCH (18:34)
[2019-03-07] MEDS: PIPERACILLIN/TAZOBACTAM 3,375 MG in SODIUM CHLORIDE 0.9% 100 ML IV SCH (18:34)
[2019-03-07] MEDS: HYDROmorphone 2 MG/1 ML VIAL IV PRN (18:50)
[2019-03-07] MEDS: CARVEDILOL 12.5 MG TABLET PO SCH (22:00)
[2019-03-07] MEDS: GABAPENTIN 300 MG CAPSULE PO SCH (22:00)
[2019-03-07] MEDS: VANCOMYCIN INJ 1,250 MG in SODIUM CHLORIDE 0.9% 250 ML IV SCH (22:01)
[2019-03-08] MEDS: HYDROmorphone 2 MG/1 ML VIAL IV PRN ×3 (00:28→09:23)
[2019-03-08] MEDS: PIPERACILLIN/TAZOBACTAM 3,375 MG in SODIUM CHLORIDE 0.9% 100 ML IV SCH ×4 (00:32→23:52)
[2019-03-08] MEDS: LACTATED RINGERS 1,000 ML IV SCH ×2 (03:09→16:10)
[2019-03-08 05:04] LABS: Basophils # 0.1 10*3/uL (0.0-0.2); Basophils % 0.8 % (0.0-0.8); Eosinophils # 0.2 10*3/uL (0.0-0.87); Eosinophils % 1.8 % (0.00-10.9); Hematocrit 30.6 VOL% (42.0-52.0); Hemoglobin 9.3 GM/DL (14.0-18.0); Immature Granulocytes % 0.4 %; Immature Granulocytes Absolute 0.05 #; Lymphocytes # 2.9 10*3/uL (1.4-4.0); Lymphocytes % 24.2 % (21.2-54.2); Mean Corpuscular HGB Conc 30.4 GM/DL (32-36); Mean Corpuscular Volume 88.4 FL (87-102); Mean Platelet Volume 10.7 FL (9.6-12.0); Monocytes % 8.8 % (1.7-12.7); Platelet Count 366 T/CUMM (130-400); Red Blood Count 3.46 MC/CUMM (3.8-5.5); Red Cell Distribution Width 14.2 % (9.3-17.3)
[2019-03-08] MEDS: INSULIN LISPRO 100 UNIT/ML SUBCUT SCH ×3 (07:26→16:11)
[2019-03-08] MEDS: CARVEDILOL 12.5 MG TABLET PO SCH ×2 (09:12→20:09)
[2019-03-08] MEDS: GABAPENTIN 300 MG CAPSULE PO SCH ×3 (09:12→20:09)
[2019-03-08] MEDS: amLODIPine 5 MG TABLET PO SCH (09:13)
[2019-03-08] MEDS: SODIUM HYPOCHLORITE 0.25% IRRIG 473 ML BOTTLE TOP SCH (09:13)
[2019-03-08] MEDS: PANTOPRAZOLE 40 MG TABLET PO SCH (09:13)
[2019-03-08] MEDS: VANCOMYCIN INJ 1,250 MG in SODIUM CHLORIDE 0.9% 250 ML IV SCH ×2 (09:19→20:09)
[2019-03-08] MEDS ORDERED: SEVOFLURANE 1 UNIT/15 MINUTE INH ONE (11:50)
[2019-03-08] MEDS ORDERED: PROPOFOL 200 MG/20 ML VIAL IV ONE (11:50)
[2019-03-08] MEDS ORDERED: ACETAMINOPHEN 1,000 MG/100 ML VIAL IV ONE (11:51)
[2019-03-08] MEDS ORDERED: fentaNYL 100 MCG/2 ML VIAL ONE (11:51)
[2019-03-08] MEDS ORDERED: ONDANSETRON 4 MG/2 ML VIAL ONE (11:51)
[2019-03-08] MEDS ORDERED: MIDAZOLAM 2 MG/2 ML VIAL ONE (11:51)
[2019-03-09] MEDS: HYDROmorphone 2 MG/1 ML VIAL IV PRN ×2 (02:15→08:03)
[2019-03-09 05:28] LABS: Basophils # 0.1 10*3/uL (0.0-0.2); Basophils % 0.8 % (0.0-0.8); Eosinophils # 0.2 10*3/uL (0.0-0.87); Eosinophils % 2.6 % (0.00-10.9); Hematocrit 29.7 VOL% (42.0-52.0); Hemoglobin 8.9 GM/DL (14.0-18.0); Immature Granulocytes % 0.4 %; Immature Granulocytes Absolute 0.03 #; Lymphocytes # 2.4 10*3/uL (1.4-4.0); Lymphocytes % 30.7 % (21.2-54.2); Mean Corpuscular Volume 87.4 FL (87-102); Mean Platelet Volume 10.4 FL (9.6-12.0); Monocytes % 6.3 % (1.7-12.7); Neutrophils % 59.2 % (38.7-73.9); Platelet Count 386 T/CUMM (130-400); Red Cell Distribution Width 13.9 % (9.3-17.3); White Blood Count 7.7 T/CUMM (4-12)
[2019-03-09 05:56] LABS: Calcium 9.2 MG/DL (8.5-10.1); Osmolality,Calculated 277.5 MOS/KG (273-304)
[2019-03-09] MEDS: PIPERACILLIN/TAZOBACTAM 3,375 MG in SODIUM CHLORIDE 0.9% 100 ML IV SCH (06:05)
[2019-03-09] MEDS: LACTATED RINGERS 1,000 ML IV SCH ×2 (06:52→10:33)
[2019-03-09] MEDS: GABAPENTIN 300 MG CAPSULE PO SCH ×3 (08:01→21:06)
[2019-03-09] MEDS: amLODIPine 5 MG TABLET PO SCH (08:01)
[2019-03-09] MEDS: CARVEDILOL 12.5 MG TABLET PO SCH ×2 (08:01→21:06)
[2019-03-09] MEDS: PANTOPRAZOLE 40 MG TABLET PO SCH (08:02)
[2019-03-09] MEDS: INSULIN LISPRO 100 UNIT/ML SUBCUT SCH ×3 (08:02→17:20)
[2019-03-09] MEDS: SODIUM HYPOCHLORITE 0.25% IRRIG 473 ML BOTTLE TOP SCH ×2 (08:08→10:44)
[2019-03-09] MEDS: VANCOMYCIN INJ 1,250 MG in SODIUM CHLORIDE 0.9% 250 ML IV SCH (10:34)
[2019-03-09] MEDS: CLINDAMYCIN INJ 600 MG in PREMIX 1 EACH IV SCH ×2 (12:27→17:21)
[2019-03-10] MEDS: CLINDAMYCIN INJ 600 MG in PREMIX 1 EACH IV SCH ×5 (00:08→23:51)
[2019-03-10] MEDS: LACTATED RINGERS 1,000 ML IV SCH ×4 (00:30→23:52)
[2019-03-10] MEDS: HYDROmorphone 2 MG/1 ML VIAL IV PRN (05:02)
[2019-03-10 05:34] LABS: Basophils # 0.1 10*3/uL (0.0-0.2); Basophils % 0.6 % (0.0-0.8); Eosinophils # 0.2 10*3/uL (0.0-0.87); Eosinophils % 2.5 % (0.00-10.9); Hematocrit 27.9 VOL% (42.0-52.0); Hemoglobin 8.6 GM/DL (14.0-18.0); Immature Granulocytes % 0.5 %; Immature Granulocytes Absolute 0.04 #; Lymphocytes # 2.4 10*3/uL (1.4-4.0); Lymphocytes % 28.8 % (21.2-54.2); Mean Corpuscular HGB Conc 30.8 GM/DL (32-36); Mean Corpuscular Volume 85.6 FL (87-102); Mean Platelet Volume 10.2 FL (9.6-12.0); Monocytes % 6.8 % (1.7-12.7); Neutrophils % 60.8 % (38.7-73.9); Platelet Count 389 T/CUMM (130-400); Red Blood Count 3.26 MC/CUMM (3.8-5.5); Red Cell Distribution Width 13.8 % (9.3-17.3); White Blood Count 8.3 T/CUMM (4-12)
[2019-03-10] MEDS: INSULIN LISPRO 100 UNIT/ML SUBCUT SCH ×3 (08:35→19:19)
[2019-03-10] MEDS: CARVEDILOL 12.5 MG TABLET PO SCH ×2 (08:37→20:33)
[2019-03-10] MEDS: amLODIPine 5 MG TABLET PO SCH (08:37)
[2019-03-10] MEDS: GABAPENTIN 300 MG CAPSULE PO SCH ×3 (08:37→20:33)
[2019-03-10] MEDS: PANTOPRAZOLE 40 MG TABLET PO SCH (08:37)
[2019-03-10] MEDS: SODIUM HYPOCHLORITE 0.25% IRRIG 473 ML BOTTLE TOP SCH (12:41)
[2019-03-11] MEDS: CLINDAMYCIN INJ 600 MG in PREMIX 1 EACH IV SCH ×3 (06:07→18:33)
[2019-03-11] MEDS: INSULIN LISPRO 100 UNIT/ML SUBCUT SCH ×3 (08:32→16:47)
[2019-03-11] MEDS: GABAPENTIN 300 MG CAPSULE PO SCH ×3 (08:33→21:15)
[2019-03-11] MEDS: CARVEDILOL 12.5 MG TABLET PO SCH ×2 (08:33→21:15)
[2019-03-11] MEDS: amLODIPine 5 MG TABLET PO SCH (08:33)
[2019-03-11] MEDS: PANTOPRAZOLE 40 MG TABLET PO SCH (08:33)
[2019-03-11] MEDS: SODIUM HYPOCHLORITE 0.25% IRRIG 473 ML BOTTLE TOP SCH (09:00)
[2019-03-11] MEDS: LACTATED RINGERS 1,000 ML IV SCH ×2 (14:27→22:40)
[2019-03-11] MEDS: HYDROmorphone 2 MG/1 ML VIAL IV PRN (16:54)
[2019-03-12] MEDS: CLINDAMYCIN INJ 600 MG in PREMIX 1 EACH IV SCH ×2 (00:22→05:40)
[2019-03-12 04:38] LABS: Basophils # 0.1 10*3/uL (0.0-0.2); Basophils % 0.9 % (0.0-0.8); Eosinophils # 0.2 10*3/uL (0.0-0.87); Eosinophils % 2.6 % (0.00-10.9); Hematocrit 30.5 VOL% (42.0-52.0); Hemoglobin 9.4 GM/DL (14.0-18.0); Immature Granulocytes % 0.6 %; Immature Granulocytes Absolute 0.05 #; Lymphocytes % 33.5 % (21.2-54.2); Mean Corpuscular HGB Conc 30.8 GM/DL (32-36); Mean Corpuscular Volume 86.9 FL (87-102); Mean Platelet Volume 10.2 FL (9.6-12.0); Monocytes % 6.2 % (1.7-12.7); Neutrophils % 56.2 % (38.7-73.9); Platelet Count 432 T/CUMM (130-400); Red Blood Count 3.51 MC/CUMM (3.8-5.5); Red Cell Distribution Width 14.2 % (9.3-17.3); White Blood Count 8.9 T/CUMM (4-12)
[2019-03-12] MEDS: LACTATED RINGERS 1,000 ML IV SCH ×3 (04:45→21:10)
[2019-03-12 05:07] LABS: Calcium 9.1 MG/DL (8.5-10.1); Osmolality,Calculated 281.5 MOS/KG (273-304)
[2019-03-12] MEDS: CIPROFLOXACIN INJ 400 MG in PREMIX 1 EACH IV SCH ×2 (09:23→21:15)
[2019-03-12] MEDS: INSULIN LISPRO 100 UNIT/ML SUBCUT SCH ×3 (09:24→16:31)
[2019-03-12] MEDS: PANTOPRAZOLE 40 MG TABLET PO SCH (09:28)
[2019-03-12] MEDS: CARVEDILOL 12.5 MG TABLET PO SCH ×2 (09:28→21:18)
[2019-03-12] MEDS: GABAPENTIN 300 MG CAPSULE PO SCH ×3 (09:28→21:18)
[2019-03-12] MEDS: amLODIPine 5 MG TABLET PO SCH (09:28)
[2019-03-12] MEDS: POTASSIUM CHLORIDE 20 MEQ TABLET PO PRN ×2 (09:29→12:45)
[2019-03-12] MEDS: SODIUM HYPOCHLORITE 0.25% IRRIG 473 ML BOTTLE TOP SCH (09:33)
[2019-03-12] MEDS: HYDROmorphone 2 MG/1 ML VIAL IV PRN (18:44)
[2019-03-13] MEDS: HYDROmorphone 2 MG/1 ML VIAL IV PRN ×6 (00:01→22:01)
[2019-03-13 04:52] LABS: Basophils # 0.1 10*3/uL (0.0-0.2); Eosinophils # 0.2 10*3/uL (0.0-0.87); Eosinophils % 2.2 % (0.00-10.9); Hematocrit 29.9 VOL% (42.0-52.0); Hemoglobin 9.2 GM/DL (14.0-18.0); Immature Granulocytes % 0.5 %; Immature Granulocytes Absolute 0.05 #; Lymphocytes % 31.7 % (21.2-54.2); Mean Corpuscular HGB Conc 30.8 GM/DL (32-36); Mean Corpuscular Volume 86.9 FL (87-102); Mean Platelet Volume 10.1 FL (9.6-12.0); Monocytes % 6.1 % (1.7-12.7); Neutrophils % 58.5 % (38.7-73.9); Platelet Count 411 T/CUMM (130-400); Red Blood Count 3.44 MC/CUMM (3.8-5.5); Red Cell Distribution Width 14.4 % (9.3-17.3); White Blood Count 9.4 T/CUMM (4-12)
[2019-03-13 05:15] LABS: Calcium 9.3 MG/DL (8.5-10.1); Osmolality,Calculated 278.5 MOS/KG (273-304)
[2019-03-13] MEDS ORDERED: LIDOCAINE 1% 20 ML VIAL ONE (07:37)
[2019-03-13] MEDS ORDERED: BUPIVACAINE MPF 0.25% /EPI 30 ML VIAL ONE (07:37)
[2019-03-13] MEDS: LACTATED RINGERS 1,000 ML IV SCH ×3 (08:11→20:20)
[2019-03-13] MEDS ORDERED: HYDROmorphone 2 MG/1 ML VIAL ONE ×2 (08:54→10:16)
[2019-03-13] MEDS ORDERED: hydrALAZINE 20 MG/1 ML VIAL ONE (09:42)
[2019-03-13] MEDS ORDERED: ONDANSETRON 4 MG/2 ML VIAL IV PRN (09:59)
[2019-03-13] MEDS ORDERED: SEVOFLURANE 1 UNIT/15 MINUTE INH ONE (10:06)
[2019-03-13] MEDS ORDERED: PROPOFOL 200 MG/20 ML VIAL IV ONE (10:06)
[2019-03-13] MEDS ORDERED: ONDANSETRON 4 MG/2 ML VIAL ONE ×2 (10:06→10:16)
[2019-03-13] MEDS ORDERED: fentaNYL 100 MCG/2 ML VIAL ONE (10:06)
[2019-03-13] MEDS ORDERED: PHENYLEPHRINE 1 MG/10 ML SYRINGE IV ONE (10:07)
[2019-03-13] MEDS ORDERED: SODIUM CHLORIDE 0.9% 250 ML IV ONE (10:07)
[2019-03-13] MEDS: GABAPENTIN 300 MG CAPSULE PO SCH ×3 (11:41→20:10)
[2019-03-13] MEDS: amLODIPine 5 MG TABLET PO SCH (11:41)
[2019-03-13] MEDS: CIPROFLOXACIN INJ 400 MG in PREMIX 1 EACH IV SCH ×2 (11:41→20:10)
[2019-03-13] MEDS: CARVEDILOL 12.5 MG TABLET PO SCH ×2 (11:41→20:10)
[2019-03-13] MEDS: INSULIN LISPRO 100 UNIT/ML SUBCUT SCH ×3 (11:41→16:57)
[2019-03-13] MEDS: PANTOPRAZOLE 40 MG TABLET PO SCH (11:42)
[2019-03-13] MEDS: SODIUM HYPOCHLORITE 0.25% IRRIG 473 ML BOTTLE TOP SCH (21:28)
[2019-03-14] MEDS: HYDROmorphone 2 MG/1 ML VIAL IV PRN ×4 (02:57→23:46)
[2019-03-14] MEDS: LACTATED RINGERS 1,000 ML IV SCH (03:00)
[2019-03-14 04:54] LABS: Basophils # 0.1 10*3/uL (0.0-0.2); Basophils % 0.5 % (0.0-0.8); Eosinophils # 0.2 10*3/uL (0.0-0.87); Eosinophils % 1.3 % (0.00-10.9); Hematocrit 30.1 VOL% (42.0-52.0); Hemoglobin 9.2 GM/DL (14.0-18.0); Immature Granulocytes % 0.7 %; Immature Granulocytes Absolute 0.09 #; Lymphocytes # 2.1 10*3/uL (1.4-4.0); Lymphocytes % 15.8 % (21.2-54.2); Mean Corpuscular HGB Conc 30.6 GM/DL (32-36); Mean Platelet Volume 10.1 FL (9.6-12.0); Monocytes % 7.2 % (1.7-12.7); Neutrophils % 74.5 % (38.7-73.9); Platelet Count 428 T/CUMM (130-400); Red Cell Distribution Width 14.3 % (9.3-17.3); White Blood Count 13.5 T/CUMM (4-12)
[2019-03-14 05:12] LABS: Calcium 9.5 MG/DL (8.5-10.1)
[2019-03-14] MEDS ORDERED: MAGNESIUM SULF RIDER 2 GM in PREMIX 1 EACH IV ONE (07:31)
[2019-03-14] MEDS: CIPROFLOXACIN INJ 400 MG in PREMIX 1 EACH IV SCH ×2 (09:20→20:53)
[2019-03-14] MEDS: CARVEDILOL 12.5 MG TABLET PO SCH ×2 (09:21→20:53)
[2019-03-14] MEDS: amLODIPine 5 MG TABLET PO SCH (09:21)
[2019-03-14] MEDS: INSULIN LISPRO 100 UNIT/ML SUBCUT SCH ×3 (09:21→18:00)
[2019-03-14] MEDS: GABAPENTIN 300 MG CAPSULE PO SCH ×3 (09:21→20:53)
[2019-03-14] MEDS: PANTOPRAZOLE 40 MG TABLET PO SCH (09:21)
[2019-03-14] MEDS: ALBUTEROL/IPRATROPIUM 3 ML NEB RESP TX SCH ×2 (13:40→19:38)
[2019-03-15] MEDS: ALBUTEROL/IPRATROPIUM 3 ML NEB RESP TX SCH ×4 (01:50→18:53)
[2019-03-15 05:58] LABS: Calcium 9.1 MG/DL (8.5-10.1)
[2019-03-15] MEDS: CIPROFLOXACIN INJ 400 MG in PREMIX 1 EACH IV SCH ×2 (09:32→20:56)
[2019-03-15] MEDS: GABAPENTIN 300 MG CAPSULE PO SCH ×3 (09:34→21:09)
[2019-03-15] MEDS: CARVEDILOL 12.5 MG TABLET PO SCH ×2 (09:34→21:09)
[2019-03-15] MEDS: INSULIN LISPRO 100 UNIT/ML SUBCUT SCH ×3 (09:34→17:28)
[2019-03-15] MEDS: amLODIPine 5 MG TABLET PO SCH (09:34)
[2019-03-15] MEDS: PANTOPRAZOLE 40 MG TABLET PO SCH (09:34)
[2019-03-15] MEDS: HYDROmorphone 2 MG/1 ML VIAL IV PRN ×2 (11:45→18:08)
[2019-03-16] MEDS: ALBUTEROL/IPRATROPIUM 3 ML NEB RESP TX SCH ×2 (00:27→07:06)
[2019-03-16] MEDS: HYDROmorphone 2 MG/1 ML VIAL IV PRN ×2 (04:39→10:11)
[2019-03-16 06:22] LABS: Basophils # 0.1 10*3/uL (0.0-0.2); Basophils % 0.6 % (0.0-0.8); Eosinophils # 0.1 10*3/uL (0.0-0.87); Eosinophils % 0.9 % (0.00-10.9); Hemoglobin 8.9 GM/DL (14.0-18.0); Immature Granulocytes % 0.8 %; Lymphocytes # 2.1 10*3/uL (1.4-4.0); Lymphocytes % 17.9 % (21.2-54.2); Mean Corpuscular HGB Conc 30.7 GM/DL (32-36); Mean Corpuscular Volume 86.1 FL (87-102); Mean Platelet Volume 10.4 FL (9.6-12.0); Monocytes % 8.6 % (1.7-12.7); Neutrophils % 71.2 % (38.7-73.9); Platelet Count 405 T/CUMM (130-400); Red Blood Count 3.37 MC/CUMM (3.8-5.5); Red Cell Distribution Width 14.3 % (9.3-17.3); White Blood Count 11.9 T/CUMM (4-12)
[2019-03-16] MEDS: amLODIPine 5 MG TABLET PO SCH (10:09)
[2019-03-16] MEDS: GABAPENTIN 300 MG CAPSULE PO SCH (10:09)
[2019-03-16] MEDS: CARVEDILOL 12.5 MG TABLET PO SCH (10:09)
[2019-03-16] MEDS: PANTOPRAZOLE 40 MG TABLET PO SCH (10:09)
[2019-03-16] MEDS: INSULIN LISPRO 100 UNIT/ML SUBCUT SCH ×2 (10:10→13:29)
[2019-03-16] MEDS: CIPROFLOXACIN INJ 400 MG in PREMIX 1 EACH IV SCH (10:14)
[2019-03-16 12:15] VITALS: BP 127/81
== END 2019-03-16 14:35 | DRG 240 ==
LOC: N.ED 12:02 → N.EDINP 14:59 → N.3E 16:25
PROVIDERS: ADMIT Surgery; ATTEND Surgery

== ENCOUNTER 2020-08-06 10:15 | Inpatient (IN) ==
[2020-08-06] MEDS ORDERED: VANCOMYCIN INJ 1,000 MG in SODIUM CHLORIDE 0.9% 250 ML IV STA (11:56)
[2020-08-06 13:00] LABS: Basophils # 0.1 10*3/uL (0.0-0.2); Basophils % 0.5 % (0.0-0.8); Eosinophils # 0.2 10*3/uL (0.0-0.87); Eosinophils % 1.1 % (0.00-10.9); Hematocrit 37.1 VOL% (42.0-52.0); Immature Granulocytes % 0.5 %; Immature Granulocytes Absolute 0.08 #; Lymphocytes # 3.3 10*3/uL (1.4-4.0); Lymphocytes % 22.5 % (21.2-54.2); Mean Corpuscular HGB Conc 32.3 GM/DL (32-36); Mean Corpuscular Volume 87.7 FL (87-102); Mean Platelet Volume 10.4 FL (9.6-12.0); Monocytes % 4.7 % (1.7-12.7); Neutrophils % 70.7 % (38.7-73.9); Platelet Count 402 T/CUMM (130-400); Red Blood Count 4.23 MC/CUMM (3.8-5.5); Red Cell Distribution Width 13.1 % (9.3-17.3); White Blood Count 14.8 T/CUMM (4-12)
[2020-08-06 13:16] LABS: Band Neutrophils 3 % (0-10); Eosinophils 1 % (0-10); Lymphocytes 24 % (20-55); Platelet Estimate Normal; Segmented Neutrophils 67 % (50-85); Total Cells Counted 100
[2020-08-06 13:17] LABS: Anisocytosis Slight; Hypersegmented Neutrophil Few
[2020-08-06 13:19] LABS: Alanine Aminotransferase 23 U/L (16-61); Alkaline Phosphatase 108 U/L (45-117); Aspartate Amino Transferase 19 U/L (0-37); Bilirubin,Total < 0.39 MG/DL (0.2-1.0); Blood Urea Nitrogen 15 MG/DL (7-18); Calcium 9.1 MG/DL (8.5-10.1); Carbon Dioxide 28 MMOL/L (21-32); Estimated Glom Filtration Rate 72 ML/MIN; Glucose 292 MG/DL (74-106); Osmolality,Calculated 275.5 MOS/KG (273-304); Potassium 4.1 MMOL/L (3.5-5.1); Sodium 132 MMOL/L (136-145); Total Protein 8.7 G/DL (6.4-8.3)
[2020-08-06] MEDS ORDERED: SODIUM CHLORIDE 0.9% 1,000 ML IV STA (13:30)
[2020-08-06] MEDS ORDERED: ACETAMINOPHEN 325 MG TABLET PO PRN (14:53)
[2020-08-06] MEDS ORDERED: hydrALAZINE 20 MG/1 ML VIAL IV PRN (14:53)
[2020-08-06] MEDS ORDERED: LACTULOSE 20 GM/30 ML UDCUP PO PRN (14:53)
[2020-08-06] MEDS ORDERED: DOCUSATE SODIUM 100 MG CAPSULE PO PRN (14:53)
[2020-08-06] MEDS ORDERED: PIPERACILLIN/TAZOBACTAM 3,375 MG in SODIUM CHLORIDE 0.9% 100 ML IV STA (14:53)
[2020-08-06] MEDS ORDERED: DEXTROSE 50% 25 GM/50 ML VIAL IV PRN (14:53)
[2020-08-06] MEDS ORDERED: ONDANSETRON 4 MG/2 ML VIAL IV PRN (14:53)
[2020-08-06] MEDS ORDERED: GLUCAGON 1 MG VIAL IM PRN (14:53)
[2020-08-06] MEDS ORDERED: SODIUM CHLORIDE 0.9% 2,450 ML IV ONE (16:14)
[2020-08-06] MEDS: INSULIN LISPRO 100 UNIT/ML SUBCUT SCH ×2 (18:24→20:51)
[2020-08-06] MEDS: ENOXAPARIN 40 MG/0.4 ML SYRINGE SUBCUT SCH (21:21)
[2020-08-06] MEDS: PIPERACILLIN/TAZOBACTAM 3,375 MG in SODIUM CHLORIDE 0.9% 100 ML IV SCH (21:23)
[2020-08-06] MEDS: NICOTINE 21 MG/24 HR PATCH TRANSDERM SCH (21:24)
[2020-08-07] MEDS: MORPHINE 4 MG/1 ML VIAL IV PRN ×5 (00:39→22:34)
[2020-08-07] MEDS: VANCOMYCIN INJ 1,250 MG in SODIUM CHLORIDE 0.9% 250 ML IV SCH ×2 (03:35→14:55)
[2020-08-07 05:33] LABS: Basophils # 0.1 10*3/uL (0.0-0.2); Basophils % 0.6 % (0.0-0.8); Eosinophils # 0.2 10*3/uL (0.0-0.87); Eosinophils % 1.3 % (0.00-10.9); Hematocrit 38.8 VOL% (42.0-52.0); Hemoglobin 11.9 GM/DL (14.0-18.0); Immature Granulocytes % 0.9 %; Immature Granulocytes Absolute 0.11 #; Lymphocytes # 3.7 10*3/uL (1.4-4.0); Lymphocytes % 28.5 % (21.2-54.2); Mean Corpuscular HGB Conc 30.7 GM/DL (32-36); Mean Corpuscular Volume 88.8 FL (87-102); Mean Platelet Volume 11.3 FL (9.6-12.0); Monocytes % 6.3 % (1.7-12.7); NRBC # 0.02 10*3/uL; Neutrophils % 62.4 % (38.7-73.9); Platelet Count 348 T/CUMM (130-400); Red Blood Count 4.37 MC/CUMM (3.8-5.5); Red Cell Distribution Width 13.2 % (9.3-17.3); White Blood Count 12.9 T/CUMM (4-12)
[2020-08-07 06:23] LABS: Albumin 2.6 G/DL (3.4-5.0); Bilirubin,Total 0.4 MG/DL (0.2-1.0); Osmolality,Calculated 268.4 MOS/KG (273-304); Potassium 5.4 MMOL/L (3.5-5.1); Total Protein 8.2 G/DL (6.4-8.3)
[2020-08-07 07:23] LABS: Band Neutrophils 1 % (0-10); Hypochromasia 1+; Lymphocytes 27 % (20-55); Microcytosis 1+; Segmented Neutrophils 68 % (50-85); Total Cells Counted 100
[2020-08-07] MEDS: INSULIN LISPRO 100 UNIT/ML SUBCUT SCH ×4 (09:11→21:36)
[2020-08-07] MEDS: NICOTINE 21 MG/24 HR PATCH TRANSDERM SCH (09:11)
[2020-08-07] MEDS: PANTOPRAZOLE 40 MG TABLET PO SCH (09:11)
[2020-08-07] MEDS: SILVER SULFADIAZINE 1% CREAM 25 GM TUBE TOP SCH (09:12)
[2020-08-07] MEDS: ENOXAPARIN 40 MG/0.4 ML SYRINGE SUBCUT SCH (21:08)
[2020-08-07] MEDS: PIPERACILLIN/TAZOBACTAM 3,375 MG in SODIUM CHLORIDE 0.9% 100 ML IV SCH (21:09)
[2020-08-08] MEDS: MORPHINE 4 MG/1 ML VIAL IV PRN ×2 (02:23→08:47)
[2020-08-08] MEDS: VANCOMYCIN INJ 1,250 MG in SODIUM CHLORIDE 0.9% 250 ML IV SCH (02:24)
[2020-08-08] MEDS: PIPERACILLIN/TAZOBACTAM 3,375 MG in SODIUM CHLORIDE 0.9% 100 ML IV SCH ×2 (05:09→15:31)
[2020-08-08 05:42] LABS: Basophils # 0.1 10*3/uL (0.0-0.2); Basophils % 0.5 % (0.0-0.8); Eosinophils # 0.1 10*3/uL (0.0-0.87); Eosinophils % 0.9 % (0.00-10.9); Hematocrit 37.2 VOL% (42.0-52.0); Immature Granulocytes % 0.7 %; Lymphocytes # 3.2 10*3/uL (1.4-4.0); Lymphocytes % 23.8 % (21.2-54.2); Mean Corpuscular HGB Conc 32.3 GM/DL (32-36); Mean Corpuscular Volume 86.9 FL (87-102); Mean Platelet Volume 10.9 FL (9.6-12.0); Monocytes % 8.4 % (1.7-12.7); Neutrophils % 65.7 % (38.7-73.9); Platelet Count 337 T/CUMM (130-400); Red Blood Count 4.28 MC/CUMM (3.8-5.5); White Blood Count 13.6 T/CUMM (4-12)
[2020-08-08 06:07] LABS: Calcium 9.4 MG/DL (8.5-10.1); Potassium 3.7 MMOL/L (3.5-5.1)
[2020-08-08] MEDS: NICOTINE 21 MG/24 HR PATCH TRANSDERM SCH (08:48)
[2020-08-08] MEDS: PANTOPRAZOLE 40 MG TABLET PO SCH (08:48)
[2020-08-08] MEDS: SILVER SULFADIAZINE 1% CREAM 25 GM TUBE TOP SCH (08:49)
[2020-08-08] MEDS: INSULIN LISPRO 100 UNIT/ML SUBCUT SCH ×2 (08:53→11:49)
[2020-08-08 11:52] VITALS: BP 146/89
== END 2020-08-08 14:52 | disposition home health service (06) | DRG 638 ==
LOC: N.ED 10:15 → N.EDINP 14:53
PROVIDERS: ADMIT Internal Medicine; ATTEND Internal Medicine

== ENCOUNTER 2020-09-30 06:16 | Inpatient (IN) ==
[2020-09-30] MEDS ORDERED: ceFAZolin 1,000 MG VIAL ONE (07:24)
[2020-09-30] MEDS ORDERED: DIAZEPAM 5 MG TABLET PO ONE (07:43)
[2020-09-30] MEDS ORDERED: FAMOTIDINE 20 MG TABLET PO ONE (07:43)
[2020-09-30] MEDS ORDERED: LACTATED RINGERS 1,000 ML IV SCH (08:00)
[2020-09-30] MEDS ORDERED: MIDAZOLAM 2 MG/2 ML VIAL ONE (09:35)
[2020-09-30] MEDS ORDERED: propofoL 200 MG/20 ML VIAL IV ONE (09:35)
[2020-09-30] MEDS ORDERED: fentaNYL 100 MCG/2 ML VIAL ONE ×2 (09:35→10:30)
[2020-09-30] MEDS ORDERED: LIDOCAINE 2% 5 ML VIAL ONE (09:35)
[2020-09-30] MEDS ORDERED: DEXMEDETOMIDINE 200 MCG/2 ML VIAL ONE (09:36)
[2020-09-30] MEDS ORDERED: PHENYLEPHRINE 10 MG/1 ML VIAL IV ONE (10:16)
[2020-09-30] MEDS ORDERED: SEVOFLURANE 1 UNIT/15 MINUTE INH ONE ×4 (10:22→11:00)
[2020-09-30] MEDS ORDERED: ONDANSETRON 4 MG/2 ML VIAL ONE (10:22)
[2020-09-30] MEDS ORDERED: ACETAMINOPHEN 1,000 MG/100 ML VIAL IV ONE (10:32)
[2020-09-30] MEDS ORDERED: KETAMINE 500 MG/10 ML VIAL ONE (10:38)
[2020-09-30] MEDS ORDERED: SODIUM CHLORIDE 0.9% 100 ML IV ONE (10:46)
[2020-09-30] MEDS ORDERED: LACTATED RINGERS 1,000 ML IV ONE (10:46)
[2020-09-30] MEDS ORDERED: ALBUTEROL/IPRATROPIUM 3 ML NEB RESP TX PRN (11:09)
[2020-09-30] MEDS ORDERED: ACETAMINOPHEN 325 MG TABLET PO PRN (11:09)
[2020-09-30] MEDS ORDERED: KETOROLAC 15 MG/1 ML VIAL IV PRN (11:09)
[2020-09-30] MEDS ORDERED: GLUCAGON 1 MG VIAL IM PRN (11:09)
[2020-09-30] MEDS ORDERED: ONDANSETRON 4 MG/2 ML VIAL IV PRN (11:09)
[2020-09-30] MEDS ORDERED: DEXTROSE 50% 25 GM/50 ML VIAL IV PRN (11:09)
[2020-09-30] MEDS ORDERED: BISACODYL 5 MG TABLET PO PRN (11:09)
[2020-09-30] MEDS ORDERED: HYDROmorphone 2 MG/1 ML VIAL IV PRN (11:09)
[2020-09-30] MEDS: HYDROmorphone 2 MG/1 ML VIAL IV PRN ×6 (11:41→23:40)
[2020-09-30] MEDS: LACTATED RINGERS 1,000 ML IV SCH ×2 (12:59→21:23)
[2020-09-30] MEDS: INSULIN LISPRO 100 UNIT/ML SUBCUT SCH ×2 (12:59→16:36)
[2020-09-30] MEDS: cefOXitin 2,000 MG in SYRINGE 1 EACH IV SCH ×2 (15:06→21:18)
[2020-09-30] MEDS: GABAPENTIN 300 MG CAPSULE PO SCH ×2 (15:06→20:09)
[2020-09-30] MEDS: glipiZIDE 5 MG TABLET PO SCH (16:36)
[2020-09-30] MEDS: carvediloL 12.5 MG TABLET PO SCH (16:37)
[2020-10-01] MEDS: cefOXitin 2,000 MG in SYRINGE 1 EACH IV SCH (03:40)
[2020-10-01] MEDS: HYDROmorphone 2 MG/1 ML VIAL IV PRN ×4 (03:43→16:41)
[2020-10-01] MEDS: LACTATED RINGERS 1,000 ML IV SCH (04:52)
[2020-10-01 07:45] LABS: Basophils # 0.1 10*3/uL (0.0-0.2); Basophils % 0.4 % (0.0-0.8); Eosinophils # 0.2 10*3/uL (0.0-0.87); Eosinophils % 1.1 % (0.00-10.9); Hematocrit 28.6 VOL% (42.0-52.0); Hemoglobin 8.8 GM/DL (14.0-18.0); Immature Granulocytes % 0.8 %; Immature Granulocytes Absolute 0.12 #; Lymphocytes # 2.1 10*3/uL (1.4-4.0); Lymphocytes % 14.4 % (21.2-54.2); Mean Corpuscular HGB Conc 30.8 GM/DL (32-36); Mean Corpuscular Volume 84.6 FL (87-102); Mean Platelet Volume 10.1 FL (9.6-12.0); Monocytes % 8.9 % (1.7-12.7); Neutrophils % 74.4 % (38.7-73.9); Platelet Count 496 T/CUMM (130-400); Red Blood Count 3.38 MC/CUMM (3.8-5.5); White Blood Count 14.7 T/CUMM (4-12)
[2020-10-01 08:29] LABS: Calcium 9.2 MG/DL (8.5-10.1); Osmolality,Calculated 270.1 MOS/KG (273-304)
[2020-10-01] MEDS: ENOXAPARIN 40 MG/0.4 ML SYRINGE SUBCUT SCH (08:57)
[2020-10-01] MEDS: glipiZIDE 5 MG TABLET PO SCH ×2 (08:58→16:42)
[2020-10-01] MEDS: carvediloL 12.5 MG TABLET PO SCH ×2 (08:58→16:41)
[2020-10-01] MEDS: PANTOPRAZOLE 40 MG TABLET PO SCH (08:58)
[2020-10-01] MEDS: GABAPENTIN 300 MG CAPSULE PO SCH ×3 (08:58→20:20)
[2020-10-01] MEDS: amLODIPine 5 MG TABLET PO SCH (08:58)
[2020-10-01] MEDS: INSULIN LISPRO 100 UNIT/ML SUBCUT SCH ×3 (09:29→16:40)
[2020-10-02] MEDS: HYDROmorphone 2 MG/1 ML VIAL IV PRN ×4 (07:10→18:08)
[2020-10-02] MEDS: PANTOPRAZOLE 40 MG TABLET PO SCH (09:07)
[2020-10-02] MEDS: carvediloL 12.5 MG TABLET PO SCH ×2 (09:07→16:04)
[2020-10-02] MEDS: amLODIPine 5 MG TABLET PO SCH (09:07)
[2020-10-02] MEDS: glipiZIDE 5 MG TABLET PO SCH ×2 (09:07→15:58)
[2020-10-02] MEDS: ENOXAPARIN 40 MG/0.4 ML SYRINGE SUBCUT SCH (09:08)
[2020-10-02] MEDS: INSULIN LISPRO 100 UNIT/ML SUBCUT SCH ×3 (09:08→16:04)
[2020-10-02] MEDS: GABAPENTIN 300 MG CAPSULE PO SCH ×3 (09:08→20:41)
[2020-10-02] MEDS: KETOROLAC 15 MG/1 ML VIAL IV SCH ×3 (11:29→21:40)
[2020-10-03] MEDS: KETOROLAC 15 MG/1 ML VIAL IV SCH ×4 (03:46→22:56)
[2020-10-03 04:57] LABS: Basophils # 0.1 10*3/uL (0.0-0.2); Basophils % 0.4 % (0.0-0.8); Eosinophils # 0.1 10*3/uL (0.0-0.87); Eosinophils % 0.7 % (0.00-10.9); Hematocrit 28.9 VOL% (42.0-52.0); Hemoglobin 9.2 GM/DL (14.0-18.0); Immature Granulocytes % 1.1 %; Immature Granulocytes Absolute 0.18 #; Lymphocytes # 2.5 10*3/uL (1.4-4.0); Lymphocytes % 15.7 % (21.2-54.2); Mean Corpuscular HGB Conc 31.8 GM/DL (32-36); Mean Corpuscular Volume 83.3 FL (87-102); Mean Platelet Volume 9.9 FL (9.6-12.0); Monocytes % 10.9 % (1.7-12.7); Neutrophils % 71.2 % (38.7-73.9); Platelet Count 490 T/CUMM (130-400); Red Blood Count 3.47 MC/CUMM (3.8-5.5); Red Cell Distribution Width 14.2 % (9.3-17.3); White Blood Count 16.1 T/CUMM (4-12)
[2020-10-03 05:28] LABS: Calcium 9.2 MG/DL (8.5-10.1); Osmolality,Calculated 267.4 MOS/KG (273-304); Potassium 4.1 MMOL/L (3.5-5.1)
[2020-10-03] MEDS: HYDROmorphone 2 MG/1 ML VIAL IV PRN ×3 (06:08→20:22)
[2020-10-03] MEDS: ENOXAPARIN 40 MG/0.4 ML SYRINGE SUBCUT SCH (09:09)
[2020-10-03] MEDS: INSULIN LISPRO 100 UNIT/ML SUBCUT SCH ×3 (09:09→16:38)
[2020-10-03] MEDS: GABAPENTIN 300 MG CAPSULE PO SCH ×3 (09:10→20:23)
[2020-10-03] MEDS: amLODIPine 5 MG TABLET PO SCH (09:10)
[2020-10-03] MEDS: PANTOPRAZOLE 40 MG TABLET PO SCH (09:10)
[2020-10-03] MEDS: glipiZIDE 5 MG TABLET PO SCH ×2 (09:10→17:02)
[2020-10-03] MEDS: carvediloL 12.5 MG TABLET PO SCH ×2 (09:11→17:02)
[2020-10-03] MEDS: LEVOFLOXACIN INJ 500 MG in PREMIX 1 EACH IV SCH (12:50)
[2020-10-03] MEDS: CLINDAMYCIN INJ 300 MG in PREMIX 1 EACH IV SCH ×2 (15:50→20:23)
[2020-10-03] MEDS ORDERED: ZALEPLON 5 MG CAPSULE PO PRN (23:05)
[2020-10-04] MEDS: KETOROLAC 15 MG/1 ML VIAL IV SCH ×2 (03:42→09:19)
[2020-10-04] MEDS: CLINDAMYCIN INJ 300 MG in PREMIX 1 EACH IV SCH ×2 (03:43→10:01)
[2020-10-04] MEDS: HYDROmorphone 2 MG/1 ML VIAL IV PRN ×2 (04:58→09:05)
[2020-10-04 05:27] LABS: Basophils # 0.1 10*3/uL (0.0-0.2); Basophils % 0.5 % (0.0-0.8); Eosinophils # 0.1 10*3/uL (0.0-0.87); Eosinophils % 0.7 % (0.00-10.9); Hematocrit 27.2 VOL% (42.0-52.0); Hemoglobin 8.8 GM/DL (14.0-18.0); Immature Granulocytes Absolute 0.15 #; Lymphocytes # 2.2 10*3/uL (1.4-4.0); Lymphocytes % 14.4 % (21.2-54.2); Mean Corpuscular HGB Conc 32.4 GM/DL (32-36); Mean Corpuscular Volume 82.2 FL (87-102); Mean Platelet Volume 10.1 FL (9.6-12.0); Monocytes % 9.5 % (1.7-12.7); Neutrophils % 73.9 % (38.7-73.9); Platelet Count 462 T/CUMM (130-400); Red Blood Count 3.31 MC/CUMM (3.8-5.5); Red Cell Distribution Width 14.1 % (9.3-17.3); White Blood Count 15.2 T/CUMM (4-12)
[2020-10-04 05:46] LABS: Calcium 8.8 MG/DL (8.5-10.1); Osmolality,Calculated 270.1 MOS/KG (273-304); Potassium 3.6 MMOL/L (3.5-5.1)
[2020-10-04] MEDS: INSULIN LISPRO 100 UNIT/ML SUBCUT SCH ×2 (07:30→11:48)
[2020-10-04] MEDS: ENOXAPARIN 40 MG/0.4 ML SYRINGE SUBCUT SCH (09:18)
[2020-10-04] MEDS: amLODIPine 5 MG TABLET PO SCH (09:18)
[2020-10-04] MEDS: glipiZIDE 5 MG TABLET PO SCH (09:18)
[2020-10-04] MEDS: GABAPENTIN 300 MG CAPSULE PO SCH ×2 (09:18→14:30)
[2020-10-04] MEDS: carvediloL 12.5 MG TABLET PO SCH (09:19)
[2020-10-04] MEDS: PANTOPRAZOLE 40 MG TABLET PO SCH (09:19)
[2020-10-04 11:34] VITALS: BP 131/70
[2020-10-04] MEDS: LEVOFLOXACIN INJ 500 MG in PREMIX 1 EACH IV SCH (11:48)
== END 2020-10-04 14:54 | DRG 240 ==
LOC: N.SDSINP 06:16 → N.5E 12:28
PROVIDERS: ADMIT Surgery; ATTEND Surgery

== ENCOUNTER 2020-10-11 09:18 | Inpatient (IN) ==
[2020-10-11] MEDS ORDERED: MORPHINE 4 MG/1 ML VIAL IV STA (09:33)
[2020-10-11] MEDS ORDERED: LACTATED RINGERS 1,000 ML IV SCH (10:00)
[2020-10-11] MEDS ORDERED: DIAZEPAM 5 MG TABLET PO STA (10:33)
[2020-10-11] MEDS ORDERED: DIAZEPAM 5 MG TABLET ONE (10:34)
[2020-10-11] MEDS ORDERED: HYDROmorphone 2 MG/1 ML VIAL ONE (13:09)
[2020-10-11] MEDS ORDERED: ONDANSETRON 4 MG/2 ML VIAL ONE (13:09)
[2020-10-11] MEDS ORDERED: ONDANSETRON 4 MG/2 ML VIAL IV PRN ×2 (13:10→13:26)
[2020-10-11] MEDS: HYDROmorphone 2 MG/1 ML VIAL IV PRN ×5 (13:10→15:41)
[2020-10-11] MEDS ORDERED: hydrALAZINE 20 MG/1 ML VIAL IV ONE (13:18)
[2020-10-11] MEDS ORDERED: MEPERIDINE 25 MG/1 ML VIAL IV ONE (13:18)
[2020-10-11] MEDS ORDERED: MEPERIDINE 25 MG/1 ML VIAL ONE (13:22)
[2020-10-11] MEDS ORDERED: hydrALAZINE 20 MG/1 ML VIAL ONE (13:22)
[2020-10-11] MEDS ORDERED: GLUCAGON 1 MG VIAL IM PRN ×2 (13:26→14:57)
[2020-10-11] MEDS ORDERED: BISACODYL 5 MG TABLET PO PRN (13:26)
[2020-10-11] MEDS ORDERED: KETOROLAC 15 MG/1 ML VIAL IV PRN (13:26)
[2020-10-11] MEDS ORDERED: DEXTROSE 50% 25 GM/50 ML VIAL IV PRN ×2 (13:26→14:57)
[2020-10-11] MEDS ORDERED: ALBUTEROL/IPRATROPIUM 3 ML NEB RESP TX PRN (13:26)
[2020-10-11] MEDS ORDERED: ACETAMINOPHEN 325 MG TABLET PO PRN (13:26)
[2020-10-11] MEDS ORDERED: ZALEPLON 5 MG CAPSULE PO PRN (13:31)
[2020-10-11] MEDS ORDERED: DOCUSATE SODIUM 100 MG CAPSULE PO PRN (13:31)
[2020-10-11] MEDS: LACTATED RINGERS 1,000 ML IV SCH (13:41)
[2020-10-11] MEDS ORDERED: hydrALAZINE 20 MG/1 ML VIAL IV PRN (14:59)
[2020-10-11 15:34] LABS: Basophils # 0.1 10*3/uL (0.0-0.2); Basophils % 0.7 % (0.0-0.8); Eosinophils # 0.1 10*3/uL (0.0-0.87); Eosinophils % 0.6 % (0.00-10.9); Hematocrit 27.9 VOL% (42.0-52.0); Hemoglobin 8.8 GM/DL (14.0-18.0); Immature Granulocytes % 0.7 %; Immature Granulocytes Absolute 0.09 #; Lymphocytes # 2.2 10*3/uL (1.4-4.0); Lymphocytes % 17.7 % (21.2-54.2); Mean Corpuscular HGB Conc 31.5 GM/DL (32-36); Mean Corpuscular Volume 82.3 FL (87-102); Mean Platelet Volume 10.1 FL (9.6-12.0); Monocytes % 7.1 % (1.7-12.7); Neutrophils % 73.2 % (38.7-73.9); Platelet Count 532 T/CUMM (130-400); Red Blood Count 3.39 MC/CUMM (3.8-5.5); Red Cell Distribution Width 14.6 % (9.3-17.3); White Blood Count 12.2 T/CUMM (4-12)
[2020-10-11] MEDS: GABAPENTIN 300 MG CAPSULE PO SCH ×2 (15:41→20:59)
[2020-10-11 15:58] LABS: Calcium 9.4 MG/DL (8.5-10.1); Osmolality,Calculated 268.4 MOS/KG (273-304); Potassium 3.7 MMOL/L (3.5-5.1)
[2020-10-11 17:11] LABS: Lymphocytes 14 % (20-55); Segmented Neutrophils 83 % (50-85); Total Cells Counted 100
[2020-10-11 17:12] LABS: Microcytosis Slight; Platelet Estimate Increased
[2020-10-11] MEDS: INSULIN LISPRO 100 UNIT/ML SUBCUT SCH (17:14)
[2020-10-11] MEDS: PIPERACILLIN/TAZOBACTAM 3,375 MG in SODIUM CHLORIDE 0.9% 100 ML IV SCH (17:15)
[2020-10-11] MEDS: carvediloL 12.5 MG TABLET PO SCH (17:15)
[2020-10-11] MEDS: amLODIPine 5 MG TABLET PO SCH (20:58)
[2020-10-11] MEDS: VANCOMYCIN INJ 1,250 MG in SODIUM CHLORIDE 0.9% 250 ML IV SCH (21:01)
[2020-10-12] MEDS: PIPERACILLIN/TAZOBACTAM 3,375 MG in SODIUM CHLORIDE 0.9% 100 ML IV SCH ×3 (01:08→16:52)
[2020-10-12] MEDS: HYDROmorphone 2 MG/1 ML VIAL IV PRN ×4 (03:03→18:10)
[2020-10-12 06:02] LABS: Basophils # 0.1 10*3/uL (0.0-0.2); Basophils % 0.6 % (0.0-0.8); Eosinophils # 0.1 10*3/uL (0.0-0.87); Eosinophils % 0.9 % (0.00-10.9); Hematocrit 26.9 VOL% (42.0-52.0); Hemoglobin 8.5 GM/DL (14.0-18.0); Immature Granulocytes % 0.7 %; Lymphocytes % 14.9 % (21.2-54.2); Mean Corpuscular HGB Conc 31.6 GM/DL (32-36); Mean Corpuscular Volume 80.5 FL (87-102); Mean Platelet Volume 10.3 FL (9.6-12.0); Monocytes % 7.4 % (1.7-12.7); Neutrophils % 75.5 % (38.7-73.9); Platelet Count 509 T/CUMM (130-400); Red Blood Count 3.34 MC/CUMM (3.8-5.5); Red Cell Distribution Width 14.6 % (9.3-17.3); White Blood Count 13.6 T/CUMM (4-12)
[2020-10-12 06:25] LABS: Calcium 9.1 MG/DL (8.5-10.1); Osmolality,Calculated 266.4 MOS/KG (273-304)
[2020-10-12 06:44] LABS: Anisocytosis 1+; Platelet Estimate Increased
[2020-10-12] MEDS: LACTATED RINGERS 1,000 ML IV SCH ×2 (06:53→16:51)
[2020-10-12] MEDS: PANTOPRAZOLE 40 MG TABLET PO SCH (07:08)
[2020-10-12] MEDS: INSULIN LISPRO 100 UNIT/ML SUBCUT SCH ×3 (08:17→16:45)
[2020-10-12] MEDS ORDERED: amLODIPine 5 MG TABLET PO SCH (09:00)
[2020-10-12] MEDS: carvediloL 12.5 MG TABLET PO SCH ×2 (09:35→16:51)
[2020-10-12] MEDS: glipiZIDE 5 MG TABLET PO SCH ×2 (09:35→16:52)
[2020-10-12] MEDS: GABAPENTIN 300 MG CAPSULE PO SCH ×3 (09:36→20:26)
[2020-10-12] MEDS: amLODIPine 5 MG TABLET PO SCH ×2 (09:36→20:27)
[2020-10-12] MEDS: ENOXAPARIN 40 MG/0.4 ML SYRINGE SUBCUT SCH (09:36)
[2020-10-12] MEDS: VANCOMYCIN INJ 1,250 MG in SODIUM CHLORIDE 0.9% 250 ML IV SCH (15:16)
[2020-10-13] MEDS: PIPERACILLIN/TAZOBACTAM 3,375 MG in SODIUM CHLORIDE 0.9% 100 ML IV SCH ×3 (01:00→16:56)
[2020-10-13] MEDS: HYDROmorphone 2 MG/1 ML VIAL IV PRN ×6 (03:14→21:39)
[2020-10-13 06:03] LABS: Basophils # 0.1 10*3/uL (0.0-0.2); Basophils % 0.6 % (0.0-0.8); Eosinophils # 0.2 10*3/uL (0.0-0.87); Eosinophils % 1.6 % (0.00-10.9); Hematocrit 25.9 VOL% (42.0-52.0); Hemoglobin 7.9 GM/DL (14.0-18.0); Immature Granulocytes % 0.7 %; Immature Granulocytes Absolute 0.08 #; Lymphocytes # 1.9 10*3/uL (1.4-4.0); Lymphocytes % 15.5 % (21.2-54.2); Mean Corpuscular HGB Conc 30.5 GM/DL (32-36); Mean Corpuscular Volume 83.5 FL (87-102); Mean Platelet Volume 10.9 FL (9.6-12.0); Monocytes % 8.1 % (1.7-12.7); Neutrophils % 73.5 % (38.7-73.9); Platelet Count 422 T/CUMM (130-400); Red Cell Distribution Width 14.9 % (9.3-17.3)
[2020-10-13 06:30] LABS: Calcium 8.9 MG/DL (8.5-10.1); Osmolality,Calculated 275.2 MOS/KG (273-304); Potassium 4.3 MMOL/L (3.5-5.1)
[2020-10-13] MEDS: LACTATED RINGERS 1,000 ML IV SCH (07:08)
[2020-10-13] MEDS: PANTOPRAZOLE 40 MG TABLET PO SCH (07:08)
[2020-10-13 07:45] LABS: Band Neutrophils 2 % (0-10); Eosinophils 3 % (0-10); Lymphocytes 19 % (20-55); Segmented Neutrophils 67 % (50-85); Total Cells Counted 100
[2020-10-13 07:46] LABS: Anisocytosis 1+; Platelet Estimate Normal
[2020-10-13] MEDS: carvediloL 12.5 MG TABLET PO SCH ×2 (08:32→16:55)
[2020-10-13] MEDS: amLODIPine 5 MG TABLET PO SCH ×2 (08:32→20:21)
[2020-10-13] MEDS: INSULIN LISPRO 100 UNIT/ML SUBCUT SCH ×3 (08:33→16:47)
[2020-10-13] MEDS: glipiZIDE 5 MG TABLET PO SCH ×2 (08:33→16:55)
[2020-10-13] MEDS: ENOXAPARIN 40 MG/0.4 ML SYRINGE SUBCUT SCH (08:33)
[2020-10-13] MEDS: GABAPENTIN 300 MG CAPSULE PO SCH ×3 (08:33→20:21)
[2020-10-13] MEDS: VANCOMYCIN INJ 1,250 MG in SODIUM CHLORIDE 0.9% 250 ML IV SCH (08:34)
[2020-10-14] MEDS: PIPERACILLIN/TAZOBACTAM 3,375 MG in SODIUM CHLORIDE 0.9% 100 ML IV SCH ×3 (01:30→17:41)
[2020-10-14] MEDS: HYDROmorphone 2 MG/1 ML VIAL IV PRN ×6 (04:30→20:56)
[2020-10-14] MEDS: VANCOMYCIN INJ 1,250 MG in SODIUM CHLORIDE 0.9% 250 ML IV SCH (06:20)
[2020-10-14] MEDS: PANTOPRAZOLE 40 MG TABLET PO SCH (06:20)
[2020-10-14] MEDS ORDERED: LIDOCAINE 2% 5 ML VIAL ONE (07:42)
[2020-10-14] MEDS ORDERED: ETOMIDATE 40 MG/20 ML VIAL IV ONE (07:42)
[2020-10-14] MEDS ORDERED: propofoL 200 MG/20 ML VIAL IV ONE (07:42)
[2020-10-14] MEDS ORDERED: fentaNYL 100 MCG/2 ML VIAL ONE ×2 (07:43→08:51)
[2020-10-14] MEDS ORDERED: MIDAZOLAM 2 MG/2 ML VIAL ONE (07:43)
[2020-10-14] MEDS ORDERED: BUPIVACAINE MPF 0.25% 30 ML VIAL ONE (07:58)
[2020-10-14] MEDS ORDERED: LIDOCAINE 1%/EPI INJ 20 ML VIAL ONE (07:58)
[2020-10-14] MEDS ORDERED: LACTATED RINGERS 1,000 ML IV SCH (08:30)
[2020-10-14] MEDS ORDERED: ONDANSETRON 4 MG/2 ML VIAL ONE (08:35)
[2020-10-14] MEDS ORDERED: SEVOFLURANE 1 UNIT/15 MINUTE INH ONE ×2 (08:35→09:00)
[2020-10-14] MEDS ORDERED: PHENYLEPHRINE 1 MG/10 ML SYRINGE IV ONE (08:40)
[2020-10-14] MEDS: INSULIN LISPRO 100 UNIT/ML SUBCUT SCH ×3 (08:46→17:40)
[2020-10-14] MEDS: glipiZIDE 5 MG TABLET PO SCH ×2 (08:46→15:32)
[2020-10-14] MEDS: carvediloL 12.5 MG TABLET PO SCH ×2 (10:12→17:40)
[2020-10-14] MEDS: ENOXAPARIN 40 MG/0.4 ML SYRINGE SUBCUT SCH (10:12)
[2020-10-14] MEDS: amLODIPine 5 MG TABLET PO SCH ×2 (10:12→21:00)
[2020-10-14] MEDS: GABAPENTIN 300 MG CAPSULE PO SCH ×3 (10:12→21:00)
[2020-10-14] MEDS: LACTATED RINGERS 1,000 ML IV SCH (12:31)
[2020-10-15] MEDS: VANCOMYCIN INJ 1,250 MG in SODIUM CHLORIDE 0.9% 250 ML IV SCH ×2 (00:17→18:06)
[2020-10-15] MEDS: HYDROmorphone 2 MG/1 ML VIAL IV PRN ×2 (00:19→09:54)
[2020-10-15] MEDS: LACTATED RINGERS 1,000 ML IV SCH ×2 (01:56→15:17)
[2020-10-15] MEDS: PIPERACILLIN/TAZOBACTAM 3,375 MG in SODIUM CHLORIDE 0.9% 100 ML IV SCH ×3 (01:58→17:59)
[2020-10-15] MEDS: PANTOPRAZOLE 40 MG TABLET PO SCH (06:58)
[2020-10-15] MEDS: glipiZIDE 5 MG TABLET PO SCH ×2 (09:12→17:59)
[2020-10-15] MEDS: ENOXAPARIN 40 MG/0.4 ML SYRINGE SUBCUT SCH (09:12)
[2020-10-15] MEDS: amLODIPine 5 MG TABLET PO SCH ×2 (09:12→22:43)
[2020-10-15] MEDS: GABAPENTIN 300 MG CAPSULE PO SCH ×3 (09:12→22:43)
[2020-10-15] MEDS: carvediloL 12.5 MG TABLET PO SCH ×2 (09:12→17:59)
[2020-10-15] MEDS: INSULIN LISPRO 100 UNIT/ML SUBCUT SCH ×3 (09:14→18:01)
[2020-10-15 10:02] LABS: Albumin 2.2 G/DL (3.4-5.0); Calcium 8.6 MG/DL (8.5-10.1); Osmolality,Calculated 271.2 MOS/KG (273-304); Potassium 4.2 MMOL/L (3.5-5.1)
[2020-10-16] MEDS: PIPERACILLIN/TAZOBACTAM 3,375 MG in SODIUM CHLORIDE 0.9% 100 ML IV SCH ×3 (00:56→16:50)
[2020-10-16] MEDS: HYDROmorphone 2 MG/1 ML VIAL IV PRN ×4 (03:17→21:10)
[2020-10-16] MEDS: INSULIN LISPRO 100 UNIT/ML SUBCUT SCH ×3 (07:38→16:00)
[2020-10-16] MEDS: amLODIPine 5 MG TABLET PO SCH ×2 (08:10→21:10)
[2020-10-16] MEDS: GABAPENTIN 300 MG CAPSULE PO SCH ×3 (08:10→21:10)
[2020-10-16] MEDS: LACTATED RINGERS 1,000 ML IV SCH ×2 (08:10→21:12)
[2020-10-16] MEDS: glipiZIDE 5 MG TABLET PO SCH ×2 (08:10→16:50)
[2020-10-16] MEDS: carvediloL 12.5 MG TABLET PO SCH ×2 (08:10→16:50)
[2020-10-16] MEDS: PANTOPRAZOLE 40 MG TABLET PO SCH (08:10)
[2020-10-16] MEDS: ENOXAPARIN 40 MG/0.4 ML SYRINGE SUBCUT SCH (08:10)
[2020-10-16] MEDS: VANCOMYCIN INJ 1,250 MG in SODIUM CHLORIDE 0.9% 250 ML IV SCH (14:19)
[2020-10-17] MEDS: PIPERACILLIN/TAZOBACTAM 3,375 MG in SODIUM CHLORIDE 0.9% 100 ML IV SCH ×2 (02:45→08:01)
[2020-10-17] MEDS: HYDROmorphone 2 MG/1 ML VIAL IV PRN ×5 (03:14→22:56)
[2020-10-17] MEDS: VANCOMYCIN INJ 1,250 MG in SODIUM CHLORIDE 0.9% 250 ML IV SCH (06:35)
[2020-10-17] MEDS: PANTOPRAZOLE 40 MG TABLET PO SCH (06:35)
[2020-10-17] MEDS: INSULIN LISPRO 100 UNIT/ML SUBCUT SCH ×3 (07:50→16:45)
[2020-10-17] MEDS: carvediloL 12.5 MG TABLET PO SCH ×2 (07:54→16:50)
[2020-10-17] MEDS: glipiZIDE 5 MG TABLET PO SCH ×2 (07:58→16:50)
[2020-10-17] MEDS: GABAPENTIN 300 MG CAPSULE PO SCH ×3 (08:00→22:30)
[2020-10-17] MEDS: ENOXAPARIN 40 MG/0.4 ML SYRINGE SUBCUT SCH (08:00)
[2020-10-17] MEDS: amLODIPine 5 MG TABLET PO SCH ×2 (08:01→22:30)
[2020-10-17] MEDS: LACTATED RINGERS 1,000 ML IV SCH ×2 (08:01→22:57)
[2020-10-17] MEDS: AMPICILLIN INJ 2,000 MG in SODIUM CHLORIDE 0.9% 100 ML IV SCH ×2 (09:15→16:50)
[2020-10-18] MEDS: AMPICILLIN INJ 2,000 MG in SODIUM CHLORIDE 0.9% 100 ML IV SCH ×2 (01:20→08:53)
[2020-10-18] MEDS: PANTOPRAZOLE 40 MG TABLET PO SCH (06:28)
[2020-10-18] MEDS: HYDROmorphone 2 MG/1 ML VIAL IV PRN ×2 (07:43→11:03)
[2020-10-18] MEDS: ENOXAPARIN 40 MG/0.4 ML SYRINGE SUBCUT SCH (08:50)
[2020-10-18] MEDS: glipiZIDE 5 MG TABLET PO SCH (08:50)
[2020-10-18] MEDS: GABAPENTIN 300 MG CAPSULE PO SCH (08:50)
[2020-10-18] MEDS: carvediloL 12.5 MG TABLET PO SCH (08:50)
[2020-10-18] MEDS: amLODIPine 5 MG TABLET PO SCH (08:50)
[2020-10-18] MEDS: INSULIN LISPRO 100 UNIT/ML SUBCUT SCH ×2 (08:52→12:19)
[2020-10-18 11:47] VITALS: BP 139/69
== END 2020-10-18 14:00 | DRG 464 ==
LOC: N.OR 09:18 → N.SDSINP 09:31 → N.5E 13:26
PROVIDERS: ADMIT Surgery; ATTEND Surgery

== ENCOUNTER 2021-01-29 05:39 | Inpatient (IN) ==
[2021-01-29] MEDS ORDERED: MORPHINE 4 MG/1 ML VIAL IV STA (05:56)
[2021-01-29] MEDS ORDERED: methylPREDNISolone SOD SUC 125 MG/2 ML VIAL IV STA (05:56)
[2021-01-29] MEDS ORDERED: PIPERACILLIN/TAZOBACTAM 3,375 MG in SODIUM CHLORIDE 0.9% 100 ML IV STA (05:56)
[2021-01-29] MEDS ORDERED: ETOMIDATE 20 MG/10 ML VIAL IV STA (05:56)
[2021-01-29] MEDS ORDERED: VECURONIUM 10 MG VIAL IV STA (05:56)
[2021-01-29 06:20] LABS: ABG Base Excess -2.8 MMOL/L (-2.5-2.5); ABG HCO3 22.1 MMOL/L (20-26); ABG Oxygen Saturation 99.6 % (95-100); Allen Test Positive; Pt O2 Delivery Device Ventilator
[2021-01-29 06:23] LABS: Basophils # 0.1 10*3/uL (0.0-0.2); Basophils % 0.4 % (0.0-0.8); Eosinophils # 0.2 10*3/uL (0.0-0.87); Hematocrit 31.8 VOL% (42.0-52.0); Hemoglobin 9.3 GM/DL (14.0-18.0); Immature Granulocytes % 1.1 %; Immature Granulocytes Absolute 0.25 #; Lymphocytes # 6.6 10*3/uL (1.4-4.0); Lymphocytes % 27.6 % (21.2-54.2); Mean Corpuscular HGB Conc 29.2 GM/DL (32-36); Mean Corpuscular Volume 85.3 FL (87-102); Mean Platelet Volume 10.8 FL (9.6-12.0); Monocytes % 9.7 % (1.7-12.7); Neutrophils % 60.2 % (38.7-73.9); Platelet Count 534 T/CUMM (130-400); Red Blood Count 3.73 MC/CUMM (3.8-5.5); Red Cell Distribution Width 17.1 % (9.3-17.3); White Blood Count 23.7 T/CUMM (4-12)
[2021-01-29 06:27] LABS: INR 1.1; PT Patient Result 11.7 SECS (10.5-12.0)
[2021-01-29 06:28] LABS: ABG PCO2 84.2 MM HG (35-48); ABG PH 7.132 (7.35-7.45)
[2021-01-29 06:30] LABS: Bacteria,Urine Occasional /HPF (Few); Bilirubin,Urine Negative (Negative); Blood, Urine Small mg/dL (Negative); Glucose,Urine (UA) Negative (Negative); Hyaline Casts,Urine 11 /LPF (0-3); Ketones,Urine Negative (Negative); Mucus,Urine Occasional /LPF (Occasional); Nitrite,Urine Negative (Negative); Protein,Urine 100 MG/DL; RBC,Urine 6 /HPF (0-4); Squamous Epithelial Cell,Urine Occasional /HPF (0-10); Urine Appearance CLEAR (Clear); Urine Color Yellow (Yellow); Urine Specific Gravity 1.014 (1.001-1.035); Urine Urobilinogen < 2.0 EU/DL (0.2-1.0)
[2021-01-29 06:49] LABS: Eosinophils 3 % (0-10); Hypochromasia 1+; Lymphocytes 17 % (20-55); Microcytosis 1+; Platelet Estimate Adequate; Segmented Neutrophils 72 % (50-85); Total Cells Counted 100
[2021-01-29 06:57] LABS: Alanine Aminotransferase 22 U/L (16-61); Albumin 2.8 G/DL (3.4-5.0); Alkaline Phosphatase 101 U/L (45-117); Aspartate Amino Transferase 40 U/L (0-37); Bilirubin,Total < 0.39 MG/DL (0.2-1.0); Blood Urea Nitrogen 11 MG/DL (7-18); Carbon Dioxide 26 MMOL/L (21-32); Estimated Glom Filtration Rate 85 ML/MIN; Glucose 228 MG/DL (74-106); Potassium 3.1 MMOL/L (3.5-5.1); Sodium 143 MMOL/L (136-145); Total Protein 9.7 G/DL (6.4-8.2)
[2021-01-29] MEDS ORDERED: LACTULOSE 20 GM/30 ML UDCUP NG STA (07:00)
[2021-01-29 07:01] LABS: Barbiturates Screen,Urine Negative (Negative); Benzodiazepines Screen,Urine Negative (Negative); Cannabinoid Screen,Urine Negative (Negative); Opiate Screen,Urine Positive (Negative); Phencyclidine Screen,Urine Negative (Negative)
[2021-01-29] MEDS ORDERED: SODIUM CHLORIDE 0.9% 1,000 ML IV STA (07:03)
[2021-01-29 08:07] LABS: ABG Base Excess -0.7 MMOL/L (-2.5-2.5); ABG HCO3 26.4 MMOL/L (20-26); ABG Oxygen Saturation 99.5 % (95-100); ABG PCO2 58.1 MM HG (35-48); ABG PH 7.276 (7.35-7.45); ABG PO2 422.8 MM HG (80-95); ABG TCO2 28.2 MMOL/L (23-27)
[2021-01-29] MEDS: SODIUM CHLOR 0.9% KCL 20 MEQ 20 MEQ/1,000 ML BAG IV SCH ×4 (08:52→23:49)
[2021-01-29] MEDS ORDERED: ALBUTEROL 2.5 MG/3 ML NEB RESP TX PRN (09:06)
[2021-01-29] MEDS ORDERED: ACETAMINOPHEN 325 MG TABLET PO PRN (09:07)
[2021-01-29] MEDS ORDERED: ONDANSETRON 4 MG/2 ML VIAL IV PRN (09:07)
[2021-01-29] MEDS ORDERED: POTASSIUM CHLORIDE 20 MEQ/15 ML UDCUP PER TUBE ONE (09:41)
[2021-01-29] MEDS ORDERED: DEXTROSE 50% 25 GM/50 ML VIAL IV PRN (09:42)
[2021-01-29] MEDS ORDERED: GLUCAGON 1 MG VIAL IM PRN (09:42)
[2021-01-29 10:21] LABS: ABG Base Excess -1.2 MMOL/L (-2.5-2.5); ABG HCO3 23.5 MMOL/L (20-26); ABG Oxygen Saturation 99.2 % (95-100); ABG PCO2 53.6 MM HG (35-48); ABG PH 7.292 (7.35-7.45); ABG TCO2 24.2 MMOL/L (23-27); Pt O2 Delivery Device Ventilator
[2021-01-29] MEDS: AZITHROMYCIN INJ 500 MG in SODIUM CHLORIDE 0.9% 250 ML IV SCH (10:42)
[2021-01-29] MEDS: ENOXAPARIN 40 MG/0.4 ML SYRINGE SUBCUT SCH (10:42)
[2021-01-29] MEDS: methylPREDNISolone SOD SUC 40 MG/1 ML VIAL IV SCH ×2 (10:42→17:55)
[2021-01-29] MEDS: cefTRIAXone 1,000 MG in SODIUM CHLORIDE 0.9% 100 ML IV SCH (10:42)
[2021-01-29] MEDS: ALBUTEROL/IPRATROPIUM 3 ML NEB RESP TX SCH ×3 (12:55→19:05)
[2021-01-29] MEDS: INSULIN LISPRO 100 UNIT/ML SUBCUT SCH ×3 (13:16→23:21)
[2021-01-29] MEDS: hydrALAZINE 20 MG/1 ML VIAL IV PRN (13:38)
[2021-01-29] MEDS: GABAPENTIN 400 MG CAPSULE PO SCH ×2 (15:08→20:12)
[2021-01-29] MEDS: SILVER SULFADIAZINE 1% CREAM 25 GM TUBE TOP SCH (15:08)
[2021-01-29] MEDS: FAMOTIDINE 20 MG TABLET PO SCH (20:12)
[2021-01-30] MEDS: ALBUTEROL/IPRATROPIUM 3 ML NEB RESP TX SCH ×4 (00:55→18:06)
[2021-01-30] MEDS: methylPREDNISolone SOD SUC 40 MG/1 ML VIAL IV SCH ×3 (02:00→17:47)
[2021-01-30 03:17] LABS: ABG Base Excess -0.1 MMOL/L (-2.5-2.5); ABG HCO3 24.4 MMOL/L (20-26); ABG Oxygen Saturation 99.5 % (95-100); ABG PCO2 37.7 MM HG (35-48); ABG PH 7.417 (7.35-7.45); ABG TCO2 22.7 MMOL/L (23-27); Allen Test Positive; Pt O2 Delivery Device Ventilator
[2021-01-30] MEDS: SODIUM CHLOR 0.9% KCL 20 MEQ 20 MEQ/1,000 ML BAG IV SCH ×4 (04:05→19:10)
[2021-01-30 05:25] LABS: Basophils % 0.1 % (0.0-0.8); Hematocrit 24.9 VOL% (42.0-52.0); Hemoglobin 7.8 GM/DL (14.0-18.0); Immature Granulocytes % 0.7 %; Immature Granulocytes Absolute 0.15 #; Lymphocytes # 0.9 10*3/uL (1.4-4.0); Lymphocytes % 4.3 % (21.2-54.2); Mean Corpuscular HGB Conc 31.3 GM/DL (32-36); Mean Corpuscular Volume 80.6 FL (87-102); Mean Platelet Volume 10.8 FL (9.6-12.0); Monocytes % 3.2 % (1.7-12.7); Neutrophils % 91.7 % (38.7-73.9); Red Blood Count 3.09 MC/CUMM (3.8-5.5); Red Cell Distribution Width 17.1 % (9.3-17.3); White Blood Count 21.7 T/CUMM (4-12)
[2021-01-30 05:26] LABS: Platelet Count 343 T/CUMM (130-400)
[2021-01-30] MEDS: INSULIN LISPRO 100 UNIT/ML SUBCUT SCH ×3 (05:26→18:30)
[2021-01-30 05:38] LABS: Lymphocytes 3 % (20-55); Nucleated Red Blood Cells 1 (0-5); Platelet Estimate Normal; Segmented Neutrophils 92 % (50-85); Total Cells Counted 100
[2021-01-30 05:45] LABS: Alanine Aminotransferase 17 U/L (16-61); Albumin 2.2 G/DL (3.4-5.0); Alkaline Phosphatase 75 U/L (45-117); Aspartate Amino Transferase 13 U/L (0-37); Bilirubin,Total < 0.39 MG/DL (0.2-1.0); Blood Urea Nitrogen 14 MG/DL (7-18); Carbon Dioxide 25 MMOL/L (21-32); Estimated Glom Filtration Rate 111 ML/MIN; Glucose 203 MG/DL (74-106); Osmolality,Calculated 289.1 MOS/KG (273-304); Potassium 3.5 MMOL/L (3.5-5.1); Sodium 142 MMOL/L (136-145)
[2021-01-30] MEDS: FAMOTIDINE 20 MG TABLET PO SCH ×2 (08:15→20:31)
[2021-01-30] MEDS: GABAPENTIN 400 MG CAPSULE PO SCH ×3 (08:15→20:31)
[2021-01-30] MEDS: ENOXAPARIN 40 MG/0.4 ML SYRINGE SUBCUT SCH (08:49)
[2021-01-30] MEDS: cefTRIAXone 1,000 MG in SODIUM CHLORIDE 0.9% 100 ML IV SCH (08:51)
[2021-01-30] MEDS: AZITHROMYCIN INJ 500 MG in SODIUM CHLORIDE 0.9% 250 ML IV SCH (10:00)
[2021-01-30] MEDS: LACTULOSE 20 GM/30 ML UDCUP PO SCH ×2 (10:04→20:31)
[2021-01-30] MEDS: MORPHINE 4 MG/1 ML VIAL IV PRN (10:07)
[2021-01-30] MEDS: SILVER SULFADIAZINE 1% CREAM 25 GM TUBE TOP SCH (11:00)
[2021-01-30] MEDS: LORazepam 2 MG/1 ML VIAL IV PRN ×3 (11:28→17:18)
[2021-01-30] MEDS: carvediloL 12.5 MG TABLET PO SCH (17:49)
[2021-01-30] MEDS ORDERED: amLODIPine 5 MG TABLET PO ONE (18:21)
[2021-01-31] MEDS: INSULIN LISPRO 100 UNIT/ML SUBCUT SCH ×4 (00:27→18:07)
[2021-01-31] MEDS: methylPREDNISolone SOD SUC 40 MG/1 ML VIAL IV SCH ×3 (00:50→17:03)
[2021-01-31] MEDS: ALBUTEROL/IPRATROPIUM 3 ML NEB RESP TX SCH ×4 (00:54→19:14)
[2021-01-31] MEDS: MORPHINE ER 15 MG TABLET PO PRN (02:43)
[2021-01-31] MEDS: SODIUM CHLOR 0.9% KCL 20 MEQ 20 MEQ/1,000 ML BAG IV SCH (02:44)
[2021-01-31 02:46] LABS: ABG Base Excess 0.6 MMOL/L (-2.5-2.5); ABG HCO3 24.1 MMOL/L (20-26); ABG Oxygen Saturation 98.5 % (95-100); ABG PCO2 33.7 MM HG (35-48); ABG PH 7.472 (7.35-7.45); ABG PO2 128.9 MM HG (80-95); ABG TCO2 25.1 MMOL/L (23-27)
[2021-01-31 04:37] LABS: Basophils % 0.1 % (0.0-0.8); Hemoglobin 7.3 GM/DL (14.0-18.0); Immature Granulocytes % 1.4 %; Immature Granulocytes Absolute 0.35 #; Lymphocytes # 1.2 10*3/uL (1.4-4.0); Lymphocytes % 4.6 % (21.2-54.2); Mean Corpuscular HGB Conc 30.4 GM/DL (32-36); Mean Corpuscular Volume 82.8 FL (87-102); Mean Platelet Volume 10.2 FL (9.6-12.0); Monocytes % 2.4 % (1.7-12.7); Neutrophils % 91.5 % (38.7-73.9); Platelet Count 360 T/CUMM (130-400); Red Cell Distribution Width 17.3 % (9.3-17.3); White Blood Count 25.2 T/CUMM (4-12)
[2021-01-31 05:07] LABS: Alanine Aminotransferase 23 U/L (16-61); Alkaline Phosphatase 71 U/L (45-117); Aspartate Amino Transferase 20 U/L (0-37); Bilirubin,Total < 0.39 MG/DL (0.2-1.0); Blood Urea Nitrogen 18 MG/DL (7-18); Calcium 8.3 MG/DL (8.5-10.1); Carbon Dioxide 25 MMOL/L (21-32); Estimated Glom Filtration Rate 101 ML/MIN; Glucose 209 MG/DL (74-106); Osmolality,Calculated 299.4 MOS/KG (273-304); Potassium 3.8 MMOL/L (3.5-5.1); Sodium 147 MMOL/L (136-145); Total Protein 7.7 G/DL (6.4-8.2)
[2021-01-31 05:07] LABS: Band Neutrophils 1 % (0-10); Hypochromasia 1+; Lymphocytes 1 % (20-55); Microcytosis 1+; Platelet Estimate Normal; Segmented Neutrophils 96 % (50-85); Total Cells Counted 100
[2021-01-31] MEDS ORDERED: FUROSEMIDE 20 MG/2 ML VIAL IV ONE (07:58)
[2021-01-31] MEDS: GABAPENTIN 400 MG CAPSULE PO SCH ×3 (08:32→20:01)
[2021-01-31] MEDS: LACTULOSE 20 GM/30 ML UDCUP PO SCH ×2 (08:32→20:01)
[2021-01-31] MEDS: ENOXAPARIN 40 MG/0.4 ML SYRINGE SUBCUT SCH (08:32)
[2021-01-31] MEDS: carvediloL 12.5 MG TABLET PO SCH ×2 (08:33→17:03)
[2021-01-31] MEDS: amLODIPine 5 MG TABLET PO SCH (08:33)
[2021-01-31] MEDS: FAMOTIDINE 20 MG TABLET PO SCH ×2 (08:33→20:01)
[2021-01-31] MEDS: cefTRIAXone 1,000 MG in SODIUM CHLORIDE 0.9% 100 ML IV SCH (08:34)
[2021-01-31] MEDS: SILVER SULFADIAZINE 1% CREAM 25 GM TUBE TOP SCH (08:35)
[2021-01-31] MEDS ORDERED: AZITHROMYCIN 250 MG TABLET PO SCH (09:00)
[2021-01-31] MEDS ORDERED: ETOMIDATE 20 MG/10 ML VIAL IV ONE (09:08)
[2021-01-31] MEDS ORDERED: propofoL 200 MG/20 ML VIAL IV ONE (09:09)
[2021-01-31] MEDS: VANCOMYCIN INJ 1,250 MG in SODIUM CHLORIDE 0.9% 250 ML IV SCH ×2 (10:40→21:00)
[2021-01-31 13:23] LABS: ABG Base Excess 2.5 MMOL/L (-2.5-2.5); ABG HCO3 26.7 MMOL/L (20-26); ABG PCO2 38.1 MM HG (35-48); ABG PH 7.451 (7.35-7.45); ABG TCO2 24.6 MMOL/L (23-27)
[2021-01-31] MEDS: LORazepam 2 MG/1 ML VIAL IV PRN (18:58)
[2021-02-01] MEDS: INSULIN LISPRO 100 UNIT/ML SUBCUT SCH ×4 (00:15→18:10)
[2021-02-01] MEDS: ALBUTEROL/IPRATROPIUM 3 ML NEB RESP TX SCH ×4 (00:56→19:05)
[2021-02-01] MEDS: MORPHINE ER 15 MG TABLET PO PRN (01:00)
[2021-02-01] MEDS: methylPREDNISolone SOD SUC 40 MG/1 ML VIAL IV SCH ×3 (01:18→18:10)
[2021-02-01 04:22] LABS: Basophils % 0.1 % (0.0-0.8); Hematocrit 24.6 VOL% (42.0-52.0); Hemoglobin 7.6 GM/DL (14.0-18.0); Immature Granulocytes % 1.2 %; Immature Granulocytes Absolute 0.29 #; Lymphocytes # 1.2 10*3/uL (1.4-4.0); Mean Corpuscular HGB Conc 30.9 GM/DL (32-36); Mean Corpuscular Volume 81.2 FL (87-102); Mean Platelet Volume 10.8 FL (9.6-12.0); Monocytes % 3.8 % (1.7-12.7); Neutrophils % 89.9 % (38.7-73.9); Platelet Count 345 T/CUMM (130-400); Red Blood Count 3.03 MC/CUMM (3.8-5.5); Red Cell Distribution Width 17.2 % (9.3-17.3); White Blood Count 23.3 T/CUMM (4-12)
[2021-02-01 04:46] LABS: ABG Base Excess 4.1 MMOL/L (-2.5-2.5); ABG HCO3 28.1 MMOL/L (20-26); ABG Oxygen Saturation 98.8 % (95-100); ABG PCO2 44.1 MM HG (35-48); ABG PH 7.426 (7.35-7.45); ABG TCO2 26.5 MMOL/L (23-27); Allen Test Positive; Pt O2 Delivery Device Ventilator
[2021-02-01 04:53] LABS: Alanine Aminotransferase 46 U/L (16-61); Alkaline Phosphatase 83 U/L (45-117); Aspartate Amino Transferase 46 U/L (0-37); Bilirubin,Total < 0.39 MG/DL (0.2-1.0); Blood Urea Nitrogen 22 MG/DL (7-18); Calcium 8.7 MG/DL (8.5-10.1); Carbon Dioxide 29 MMOL/L (21-32); Estimated Glom Filtration Rate 113 ML/MIN; Glucose 223 MG/DL (74-106); Osmolality,Calculated 297.7 MOS/KG (273-304); Potassium 3.5 MMOL/L (3.5-5.1); Sodium 145 MMOL/L (136-145); Total Protein 7.8 G/DL (6.4-8.2)
[2021-02-01 07:36] LABS: Hypochromasia 1+; Lymphocytes 7 % (20-55); Platelet Estimate Adequate; Segmented Neutrophils 92 % (50-85); Total Cells Counted 100
[2021-02-01] MEDS ORDERED: FUROSEMIDE 40 MG/4 ML VIAL IV ONE (08:15)
[2021-02-01] MEDS: amLODIPine 5 MG TABLET PO SCH (08:51)
[2021-02-01] MEDS: LACTULOSE 20 GM/30 ML UDCUP PO SCH ×2 (08:51→20:41)
[2021-02-01] MEDS: carvediloL 12.5 MG TABLET PO SCH ×2 (08:51→16:10)
[2021-02-01] MEDS: GABAPENTIN 400 MG CAPSULE PO SCH ×3 (08:51→20:41)
[2021-02-01] MEDS: ENOXAPARIN 40 MG/0.4 ML SYRINGE SUBCUT SCH (08:53)
[2021-02-01] MEDS: FAMOTIDINE 20 MG TABLET PO SCH ×2 (08:53→20:41)
[2021-02-01] MEDS: VANCOMYCIN INJ 1,250 MG in SODIUM CHLORIDE 0.9% 250 ML IV SCH ×2 (08:53→20:41)
[2021-02-01] MEDS: cefTRIAXone 1,000 MG in SODIUM CHLORIDE 0.9% 100 ML IV SCH (08:54)
[2021-02-01] MEDS ORDERED: PNEUMOCOCCAL VACCINE (23 VALENT) 0.5 ML VIAL IM ONE (09:00)
[2021-02-01] MEDS: SILVER SULFADIAZINE 1% CREAM 25 GM TUBE TOP SCH (11:31)
[2021-02-01] MEDS ORDERED: MORPHINE 2 MG/1 ML SYRINGE ONE (19:41)
[2021-02-01] MEDS: MORPHINE 4 MG/1 ML VIAL IV PRN (19:46)
[2021-02-01] MEDS: SCOPOLAMINE 1.5 MG PATCH TRANSDERM SCH (20:41)
[2021-02-02] MEDS: INSULIN LISPRO 100 UNIT/ML SUBCUT SCH ×5 (00:18→23:22)
[2021-02-02] MEDS: ALBUTEROL/IPRATROPIUM 3 ML NEB RESP TX SCH ×4 (00:24→19:26)
[2021-02-02] MEDS: methylPREDNISolone SOD SUC 40 MG/1 ML VIAL IV SCH ×3 (02:45→17:51)
[2021-02-02] MEDS: hydrALAZINE 20 MG/1 ML VIAL IV PRN ×2 (04:11→15:16)
[2021-02-02 04:45] LABS: ABG Base Excess 7.6 MMOL/L (-2.5-2.5); ABG HCO3 31.2 MMOL/L (20-26); ABG Oxygen Saturation 98.6 % (95-100); ABG PCO2 39.8 MM HG (35-48); ABG PH 7.512 (7.35-7.45); ABG TCO2 32.4 MMOL/L (23-27); Allen Test Positive; Pt O2 Delivery Device Ventilator
[2021-02-02 04:58] LABS: Basophils % 0.1 % (0.0-0.8); Hematocrit 28.8 VOL% (42.0-52.0); Hemoglobin 8.9 GM/DL (14.0-18.0); Immature Granulocytes % 1.5 %; Immature Granulocytes Absolute 0.35 #; Lymphocytes # 1.3 10*3/uL (1.4-4.0); Lymphocytes % 5.6 % (21.2-54.2); Mean Corpuscular HGB Conc 30.9 GM/DL (32-36); Mean Corpuscular Volume 80.9 FL (87-102); Mean Platelet Volume 10.9 FL (9.6-12.0); Monocytes % 4.8 % (1.7-12.7); Platelet Count 415 T/CUMM (130-400); Red Blood Count 3.56 MC/CUMM (3.8-5.5); Red Cell Distribution Width 16.6 % (9.3-17.3); White Blood Count 22.9 T/CUMM (4-12)
[2021-02-02] MEDS: LORazepam 2 MG/1 ML VIAL IV PRN (04:58)
[2021-02-02] MEDS ORDERED: MORPHINE 2 MG/1 ML SYRINGE ONE (05:03)
[2021-02-02] MEDS: MORPHINE 4 MG/1 ML VIAL IV PRN (05:07)
[2021-02-02 05:21] LABS: Hypochromasia 1+; Lymphocytes 5 % (20-55); Microcytosis 1+; Platelet Estimate Adequate; Segmented Neutrophils 92 % (50-85); Total Cells Counted 100
[2021-02-02 05:24] LABS: Alanine Aminotransferase 117 U/L (16-61); Albumin 2.2 G/DL (3.4-5.0); Alkaline Phosphatase 96 U/L (45-117); Aspartate Amino Transferase 81 U/L (0-37); Bilirubin,Total < 0.39 MG/DL (0.2-1.0); Blood Urea Nitrogen 28 MG/DL (7-18); Calcium 8.6 MG/DL (8.5-10.1); Carbon Dioxide 31 MMOL/L (21-32); Estimated Glom Filtration Rate 113 ML/MIN; Glucose 233 MG/DL (74-106); Osmolality,Calculated 302.6 MOS/KG (273-304); Potassium 3.3 MMOL/L (3.5-5.1); Sodium 146 MMOL/L (136-145)
[2021-02-02] MEDS: LACTULOSE 20 GM/30 ML UDCUP PO SCH ×2 (08:19→20:23)
[2021-02-02] MEDS: FAMOTIDINE 20 MG TABLET PO SCH ×2 (08:20→20:23)
[2021-02-02] MEDS: GABAPENTIN 400 MG CAPSULE PO SCH ×3 (08:20→20:23)
[2021-02-02] MEDS: carvediloL 12.5 MG TABLET PO SCH ×2 (08:20→17:10)
[2021-02-02] MEDS: amLODIPine 5 MG TABLET PO SCH (08:20)
[2021-02-02] MEDS: cefTRIAXone 1,000 MG in SODIUM CHLORIDE 0.9% 100 ML IV SCH (09:09)
[2021-02-02] MEDS: ENOXAPARIN 40 MG/0.4 ML SYRINGE SUBCUT SCH (09:10)
[2021-02-02] MEDS: SILVER SULFADIAZINE 1% CREAM 25 GM TUBE TOP SCH (09:13)
[2021-02-02] MEDS: VANCOMYCIN INJ 1,250 MG in SODIUM CHLORIDE 0.9% 250 ML IV SCH ×2 (09:16→20:51)
[2021-02-02] MEDS ORDERED: POTASSIUM CHLORIDE 20 MEQ TABLET PO ONE (21:00)
[2021-02-03] MEDS: ALBUTEROL/IPRATROPIUM 3 ML NEB RESP TX SCH ×4 (00:35→19:46)
[2021-02-03] MEDS: methylPREDNISolone SOD SUC 40 MG/1 ML VIAL IV SCH ×3 (02:11→16:40)
[2021-02-03 04:42] LABS: ABG Base Excess 6.8 MMOL/L (-2.5-2.5); ABG HCO3 30.9 MMOL/L (20-26); ABG Oxygen Saturation 98.4 % (95-100); ABG PCO2 42.4 MM HG (35-48); ABG PH 7.481 (7.35-7.45); ABG PO2 137.1 MM HG (80-95); ABG TCO2 32.2 MMOL/L (23-27); Allen Test Positive; Pt O2 Delivery Device Ventilator
[2021-02-03] MEDS: hydrALAZINE 20 MG/1 ML VIAL IV PRN ×2 (05:03→20:41)
[2021-02-03] MEDS: INSULIN LISPRO 100 UNIT/ML SUBCUT SCH ×3 (06:17→17:55)
[2021-02-03 06:23] LABS: Basophils % 0.1 % (0.0-0.8); Hematocrit 31.3 VOL% (42.0-52.0); Hemoglobin 9.5 GM/DL (14.0-18.0); Immature Granulocytes % 1.5 %; Immature Granulocytes Absolute 0.36 #; Lymphocytes # 1.6 10*3/uL (1.4-4.0); Lymphocytes % 6.6 % (21.2-54.2); Mean Corpuscular HGB Conc 30.4 GM/DL (32-36); Mean Corpuscular Volume 81.3 FL (87-102); Mean Platelet Volume 10.7 FL (9.6-12.0); Monocytes % 4.6 % (1.7-12.7); NRBC # 0.02 10*3/uL; Neutrophils % 87.2 % (38.7-73.9); Platelet Count 413 T/CUMM (130-400); Red Blood Count 3.85 MC/CUMM (3.8-5.5); Red Cell Distribution Width 16.7 % (9.3-17.3); White Blood Count 24.1 T/CUMM (4-12)
[2021-02-03 06:41] LABS: Hypochromasia 1+; Lymphocytes 6 % (20-55); Microcytosis 1+; Platelet Estimate Adequate; Segmented Neutrophils 87 % (50-85); Total Cells Counted 100
[2021-02-03 08:18] LABS: Alanine Aminotransferase 85 U/L (16-61); Albumin 2.2 G/DL (3.4-5.0); Alkaline Phosphatase 75 U/L (45-117); Bilirubin,Total < 0.39 MG/DL (0.2-1.0); Calcium 7.9 MG/DL (8.5-10.1); Estimated Glom Filtration Rate 124 ML/MIN; Glucose 212 MG/DL (74-106); Potassium 3.9 MMOL/L (3.5-5.1); Sodium 146 MMOL/L (136-145); Total Protein 7.1 G/DL (6.4-8.2)
[2021-02-03] MEDS: SILVER SULFADIAZINE 1% CREAM 25 GM TUBE TOP SCH (08:20)
[2021-02-03 08:47] LABS: Aspartate Amino Transferase 25 U/L (0-37); Blood Urea Nitrogen 31 MG/DL (7-18); Carbon Dioxide 27 MMOL/L (21-32); Osmolality,Calculated 302.6 MOS/KG (273-304)
[2021-02-03] MEDS: ENOXAPARIN 40 MG/0.4 ML SYRINGE SUBCUT SCH (09:30)
[2021-02-03] MEDS: amLODIPine 5 MG TABLET PO SCH (09:35)
[2021-02-03] MEDS: FAMOTIDINE 20 MG TABLET PO SCH ×2 (09:35→20:40)
[2021-02-03] MEDS: carvediloL 12.5 MG TABLET PO SCH ×2 (09:35→16:40)
[2021-02-03] MEDS: LACTULOSE 20 GM/30 ML UDCUP PO SCH ×2 (09:35→20:40)
[2021-02-03] MEDS: POTASSIUM CHLORIDE 20 MEQ/15 ML UDCUP PER TUBE SCH ×3 (09:35→16:40)
[2021-02-03] MEDS: GABAPENTIN 400 MG CAPSULE PO SCH ×3 (09:35→20:40)
[2021-02-03] MEDS: cefTRIAXone 1,000 MG in SODIUM CHLORIDE 0.9% 100 ML IV SCH (09:40)
[2021-02-03] MEDS: VANCOMYCIN INJ 1,250 MG in SODIUM CHLORIDE 0.9% 250 ML IV SCH ×2 (09:40→20:41)
[2021-02-03] MEDS: CEFEPIME 1,000 MG in SODIUM CHLORIDE 0.9% 100 ML IV SCH ×2 (11:20→17:55)
[2021-02-03] MEDS: MORPHINE ER 15 MG TABLET PO PRN (16:40)
[2021-02-04] MEDS: INSULIN LISPRO 100 UNIT/ML SUBCUT SCH ×4 (00:15→17:30)
[2021-02-04] MEDS: CEFEPIME 1,000 MG in SODIUM CHLORIDE 0.9% 100 ML IV SCH ×4 (00:15→17:30)
[2021-02-04] MEDS: methylPREDNISolone SOD SUC 40 MG/1 ML VIAL IV SCH ×3 (01:07→17:30)
[2021-02-04] MEDS: ALBUTEROL/IPRATROPIUM 3 ML NEB RESP TX SCH ×4 (02:00→20:00)
[2021-02-04] MEDS: MORPHINE ER 15 MG TABLET PO PRN ×2 (02:39→17:30)
[2021-02-04 02:48] LABS: ABG Base Excess 4.4 MMOL/L (-2.5-2.5); ABG HCO3 28.4 MMOL/L (20-26); ABG Oxygen Saturation 99.3 % (95-100); ABG PCO2 39.5 MM HG (35-48); ABG PH 7.465 (7.35-7.45); ABG TCO2 25.6 MMOL/L (23-27)
[2021-02-04 04:41] LABS: Basophils % 0.1 % (0.0-0.8); Hematocrit 29.7 VOL% (42.0-52.0); Hemoglobin 8.9 GM/DL (14.0-18.0); Immature Granulocytes % 1.4 %; Immature Granulocytes Absolute 0.34 #; Lymphocytes # 1.4 10*3/uL (1.4-4.0); Lymphocytes % 5.7 % (21.2-54.2); Mean Corpuscular Volume 83.2 FL (87-102); Mean Platelet Volume 11.5 FL (9.6-12.0); Monocytes % 5.3 % (1.7-12.7); Neutrophils % 87.5 % (38.7-73.9); Platelet Count 420 T/CUMM (130-400); Red Blood Count 3.57 MC/CUMM (3.8-5.5); Red Cell Distribution Width 17.1 % (9.3-17.3); White Blood Count 23.6 T/CUMM (4-12)
[2021-02-04 05:10] LABS: Hypochromasia 1+; Lymphocytes 5 % (20-55); Microcytosis 1+; Platelet Estimate Adequate; Segmented Neutrophils 86 % (50-85); Total Cells Counted 100
[2021-02-04 05:21] LABS: Calcium 8.7 MG/DL (8.5-10.1); Osmolality,Calculated 300.7 MOS/KG (273-304)
[2021-02-04] MEDS ORDERED: ROCURONIUM 50 MG/5 ML VIAL IV ONE ×2 (06:34→07:56)
[2021-02-04] MEDS ORDERED: MIDAZOLAM 2 MG/2 ML VIAL ONE ×2 (06:35→07:57)
[2021-02-04] MEDS ORDERED: fentaNYL 100 MCG/2 ML VIAL ONE ×2 (06:36→07:50)
[2021-02-04] MEDS ORDERED: KETAMINE 500 MG/10 ML VIAL ONE (06:36)
[2021-02-04] MEDS ORDERED: SEVOFLURANE 1 UNIT/15 MINUTE INH ONE ×3 (07:28→08:07)
[2021-02-04] MEDS ORDERED: ONDANSETRON 4 MG/2 ML VIAL ONE (07:28)
[2021-02-04] MEDS ORDERED: hydrALAZINE 20 MG/1 ML VIAL ONE (07:47)
[2021-02-04] MEDS: MORPHINE 2 MG/1 ML SYRINGE IV PRN ×2 (08:50→13:15)
[2021-02-04] MEDS: hydrALAZINE 20 MG/1 ML VIAL IV PRN (08:50)
[2021-02-04] MEDS: ENOXAPARIN 40 MG/0.4 ML SYRINGE SUBCUT SCH (08:50)
[2021-02-04] MEDS: LACTULOSE 20 GM/30 ML UDCUP PO SCH ×2 (08:55→21:28)
[2021-02-04] MEDS: GABAPENTIN 400 MG CAPSULE PO SCH ×3 (08:55→21:28)
[2021-02-04] MEDS: amLODIPine 5 MG TABLET PO SCH (08:55)
[2021-02-04] MEDS: carvediloL 12.5 MG TABLET PO SCH ×2 (08:55→17:30)
[2021-02-04] MEDS: FAMOTIDINE 20 MG TABLET PO SCH ×2 (08:55→21:28)
[2021-02-04] MEDS: SILVER SULFADIAZINE 1% CREAM 25 GM TUBE TOP SCH (09:00)
[2021-02-04] MEDS: SCOPOLAMINE 1.5 MG PATCH TRANSDERM SCH (09:05)
[2021-02-04] MEDS: VANCOMYCIN INJ 1,250 MG in SODIUM CHLORIDE 0.9% 250 ML IV SCH ×2 (09:20→21:28)
[2021-02-04] MEDS ORDERED: INSULIN GLARGINE 100 UNIT/ML SUBCUT SCH (21:00)
[2021-02-05] MEDS: CEFEPIME 1,000 MG in SODIUM CHLORIDE 0.9% 100 ML IV SCH ×5 (00:28→23:30)
[2021-02-05] MEDS: INSULIN LISPRO 100 UNIT/ML SUBCUT SCH ×4 (00:28→18:22)
[2021-02-05] MEDS: methylPREDNISolone SOD SUC 40 MG/1 ML VIAL IV SCH ×3 (00:29→21:27)
[2021-02-05] MEDS: MORPHINE 2 MG/1 ML SYRINGE IV PRN ×3 (03:15→14:18)
[2021-02-05 04:52] LABS: ABG HCO3 25.2 MMOL/L (20-26); ABG Oxygen Saturation 98.6 % (95-100); ABG PH 7.439 (7.35-7.45); ABG PO2 171.5 MM HG (80-95); ABG TCO2 26.3 MMOL/L (23-27)
[2021-02-05 05:47] LABS: Basophils % 0.1 % (0.0-0.8); Hematocrit 30.4 VOL% (42.0-52.0); Hemoglobin 9.4 GM/DL (14.0-18.0); Immature Granulocytes % 1.3 %; Lymphocytes # 1.1 10*3/uL (1.4-4.0); Lymphocytes % 4.9 % (21.2-54.2); Mean Corpuscular HGB Conc 30.9 GM/DL (32-36); Mean Corpuscular Volume 82.4 FL (87-102); Mean Platelet Volume 11.4 FL (9.6-12.0); Monocytes % 4.7 % (1.7-12.7); Platelet Count 374 T/CUMM (130-400); Red Blood Count 3.69 MC/CUMM (3.8-5.5); Red Cell Distribution Width 17.2 % (9.3-17.3); White Blood Count 22.3 T/CUMM (4-12)
[2021-02-05 06:09] LABS: Hypochromasia 1+; Lymphocytes 4 % (20-55); Microcytosis 1+; Platelet Estimate Adequate; Segmented Neutrophils 93 % (50-85); Total Cells Counted 100
[2021-02-05 06:13] LABS: Calcium 8.5 MG/DL (8.5-10.1); Osmolality,Calculated 298.3 MOS/KG (273-304); Potassium 4.4 MMOL/L (3.5-5.1)
[2021-02-05] MEDS: ALBUTEROL/IPRATROPIUM 3 ML NEB RESP TX SCH ×4 (06:56→19:32)
[2021-02-05] MEDS: amLODIPine 5 MG TABLET PO SCH (08:40)
[2021-02-05] MEDS: LACTULOSE 20 GM/30 ML UDCUP PO SCH ×2 (08:40→21:22)
[2021-02-05] MEDS: ENOXAPARIN 40 MG/0.4 ML SYRINGE SUBCUT SCH (08:40)
[2021-02-05] MEDS: GABAPENTIN 400 MG CAPSULE PO SCH ×3 (08:40→21:23)
[2021-02-05] MEDS: FAMOTIDINE 20 MG TABLET PO SCH ×2 (08:40→21:23)
[2021-02-05] MEDS: carvediloL 12.5 MG TABLET PO SCH ×2 (08:40→18:22)
[2021-02-05] MEDS: SILVER SULFADIAZINE 1% CREAM 25 GM TUBE TOP SCH (08:44)
[2021-02-05] MEDS: VANCOMYCIN INJ 1,250 MG in SODIUM CHLORIDE 0.9% 250 ML IV SCH ×2 (08:47→21:23)
[2021-02-05] MEDS ORDERED: INSULIN GLARGINE 100 UNIT/ML SUBCUT SCH ×2 (09:38→21:00)
[2021-02-05] MEDS: cloNIDine 0.1 MG TABLET PO SCH ×2 (11:59→18:47)
[2021-02-06] MEDS: cloNIDine 0.1 MG TABLET PO SCH ×4 (00:33→18:08)
[2021-02-06] MEDS: INSULIN LISPRO 100 UNIT/ML SUBCUT SCH ×4 (00:33→18:37)
[2021-02-06] MEDS: ALBUTEROL/IPRATROPIUM 3 ML NEB RESP TX SCH ×4 (01:31→19:29)
[2021-02-06 04:19] LABS: ABG Base Excess 1.2 MMOL/L (-2.5-2.5); ABG HCO3 25.5 MMOL/L (20-26); ABG Oxygen Saturation 98.7 % (95-100); ABG PCO2 39.4 MM HG (35-48); ABG PH 7.429 (7.35-7.45); ABG TCO2 26.7 MMOL/L (23-27); Allen Test Positive; Pt O2 Delivery Device Ventilator
[2021-02-06] MEDS: MORPHINE 2 MG/1 ML SYRINGE IV PRN ×2 (05:21→10:43)
[2021-02-06] MEDS: CEFEPIME 1,000 MG in SODIUM CHLORIDE 0.9% 100 ML IV SCH ×3 (05:22→18:08)
[2021-02-06 06:42] LABS: Basophils % 0.1 % (0.0-0.8); Hematocrit 31.4 VOL% (42.0-52.0); Hemoglobin 9.5 GM/DL (14.0-18.0); Immature Granulocytes % 1.5 %; Immature Granulocytes Absolute 0.32 #; Lymphocytes # 1.4 10*3/uL (1.4-4.0); Lymphocytes % 6.3 % (21.2-54.2); Mean Corpuscular HGB Conc 30.3 GM/DL (32-36); Mean Corpuscular Volume 82.2 FL (87-102); Mean Platelet Volume 11.6 FL (9.6-12.0); Neutrophils % 87.1 % (38.7-73.9); Platelet Count 373 T/CUMM (130-400); Red Blood Count 3.82 MC/CUMM (3.8-5.5); Red Cell Distribution Width 17.2 % (9.3-17.3); White Blood Count 21.6 T/CUMM (4-12)
[2021-02-06] MEDS: methylPREDNISolone SOD SUC 40 MG/1 ML VIAL IV SCH ×2 (07:00→15:25)
[2021-02-06] MEDS: carvediloL 12.5 MG TABLET PO SCH (07:00)
[2021-02-06 07:02] LABS: Hypochromasia 1+; Lymphocytes 6 % (20-55); Microcytosis 1+; Platelet Estimate Adequate; Segmented Neutrophils 89 % (50-85); Total Cells Counted 100
[2021-02-06 07:05] LABS: Calcium 8.4 MG/DL (8.5-10.1); Osmolality,Calculated 297.3 MOS/KG (273-304); Potassium 4.6 MMOL/L (3.5-5.1)
[2021-02-06] MEDS ORDERED: methylPREDNISolone SOD SUC 40 MG/1 ML VIAL IV SCH (08:04)
[2021-02-06] MEDS: FAMOTIDINE 20 MG TABLET PO SCH ×2 (08:20→21:24)
[2021-02-06] MEDS: LACTULOSE 20 GM/30 ML UDCUP PO SCH ×2 (08:20→20:57)
[2021-02-06] MEDS: SILVER SULFADIAZINE 1% CREAM 25 GM TUBE TOP SCH (08:21)
[2021-02-06] MEDS: GABAPENTIN 400 MG CAPSULE PO SCH ×3 (08:21→21:24)
[2021-02-06] MEDS: amLODIPine 10 MG TABLET PO SCH (08:22)
[2021-02-06] MEDS: ENOXAPARIN 40 MG/0.4 ML SYRINGE SUBCUT SCH (08:48)
[2021-02-06] MEDS ORDERED: INSULIN GLARGINE 100 UNIT/ML SUBCUT SCH (09:00)
[2021-02-06] MEDS: carvediloL 25 MG TABLET PO SCH (18:08)
[2021-02-06] MEDS: VANCOMYCIN INJ 1,250 MG in SODIUM CHLORIDE 0.9% 250 ML IV SCH (21:24)
[2021-02-07] MEDS: ALBUTEROL/IPRATROPIUM 3 ML NEB RESP TX SCH ×4 (00:45→19:59)
[2021-02-07] MEDS: INSULIN LISPRO 100 UNIT/ML SUBCUT SCH ×5 (01:51→21:39)
[2021-02-07] MEDS: cloNIDine 0.1 MG TABLET PO SCH ×5 (01:51→21:04)
[2021-02-07] MEDS: CEFEPIME 1,000 MG in SODIUM CHLORIDE 0.9% 100 ML IV SCH ×4 (01:52→17:10)
[2021-02-07] MEDS: methylPREDNISolone SOD SUC 40 MG/1 ML VIAL IV SCH (03:42)
[2021-02-07] MEDS: MORPHINE 2 MG/1 ML SYRINGE IV PRN ×2 (03:45→09:41)
[2021-02-07 05:43] LABS: Basophils % 0.2 % (0.0-0.8); Eosinophils % 0.2 % (0.00-10.9); Hematocrit 30.1 VOL% (42.0-52.0); Hemoglobin 9.2 GM/DL (14.0-18.0); Immature Granulocytes % 1.3 %; Immature Granulocytes Absolute 0.24 #; Lymphocytes # 4.3 10*3/uL (1.4-4.0); Lymphocytes % 23.8 % (21.2-54.2); Mean Corpuscular HGB Conc 30.6 GM/DL (32-36); Mean Corpuscular Volume 80.9 FL (87-102); Mean Platelet Volume 12.5 FL (9.6-12.0); Monocytes % 9.9 % (1.7-12.7); Neutrophils % 64.6 % (38.7-73.9); Platelet Count 316 T/CUMM (130-400); Red Blood Count 3.72 MC/CUMM (3.8-5.5); Red Cell Distribution Width 16.9 % (9.3-17.3)
[2021-02-07 06:50] LABS: Calcium 8.4 MG/DL (8.5-10.1); Osmolality,Calculated 282.4 MOS/KG (273-304); Potassium 3.3 MMOL/L (3.5-5.1)
[2021-02-07] MEDS: carvediloL 25 MG TABLET PO SCH ×2 (08:55→17:10)
[2021-02-07] MEDS: POTASSIUM CHLORIDE 20 MEQ TABLET PO SCH ×3 (08:56→17:10)
[2021-02-07] MEDS: GABAPENTIN 400 MG CAPSULE PO SCH ×3 (08:57→21:03)
[2021-02-07] MEDS: INSULIN GLARGINE 100 UNIT/ML SUBCUT SCH (08:57)
[2021-02-07] MEDS: predniSONE 10 MG TABLET PO SCH ×2 (08:57→21:04)
[2021-02-07] MEDS: amLODIPine 10 MG TABLET PO SCH (08:57)
[2021-02-07] MEDS: FAMOTIDINE 20 MG TABLET PO SCH ×2 (08:57→21:04)
[2021-02-07] MEDS: ENOXAPARIN 40 MG/0.4 ML SYRINGE SUBCUT SCH (08:58)
[2021-02-07] MEDS: SCOPOLAMINE 1.5 MG PATCH TRANSDERM SCH (09:41)
[2021-02-07] MEDS: LACTULOSE 20 GM/30 ML UDCUP PO SCH (12:20)
[2021-02-07] MEDS: SILVER SULFADIAZINE 1% CREAM 25 GM TUBE TOP SCH (13:30)
[2021-02-07] MEDS ORDERED: LACTULOSE 20 GM/30 ML UDCUP PO PRN (14:02)
[2021-02-07] MEDS: VANCOMYCIN INJ 1,250 MG in SODIUM CHLORIDE 0.9% 250 ML IV SCH (21:40)
[2021-02-08] MEDS: CEFEPIME 1,000 MG in SODIUM CHLORIDE 0.9% 100 ML IV SCH ×4 (00:25→17:32)
[2021-02-08] MEDS: ALBUTEROL/IPRATROPIUM 3 ML NEB RESP TX SCH ×4 (01:00→20:23)
[2021-02-08 05:46] LABS: Basophils % 0.1 % (0.0-0.8); Hematocrit 31.2 VOL% (42.0-52.0); Hemoglobin 9.7 GM/DL (14.0-18.0); Immature Granulocytes % 1.4 %; Lymphocytes % 13.5 % (21.2-54.2); Mean Corpuscular HGB Conc 31.1 GM/DL (32-36); Mean Corpuscular Volume 80.8 FL (87-102); Mean Platelet Volume 11.9 FL (9.6-12.0); Monocytes % 8.1 % (1.7-12.7); Neutrophils % 76.9 % (38.7-73.9); Platelet Count 387 T/CUMM (130-400); Red Blood Count 3.86 MC/CUMM (3.8-5.5); Red Cell Distribution Width 16.5 % (9.3-17.3); White Blood Count 22.1 T/CUMM (4-12)
[2021-02-08 06:04] LABS: Calcium 8.6 MG/DL (8.5-10.1); Osmolality,Calculated 276.2 MOS/KG (273-304); Potassium 4.3 MMOL/L (3.5-5.1)
[2021-02-08 06:33] LABS: Hypochromasia 1+
[2021-02-08 06:34] LABS: Microcytosis 1+; Platelet Estimate Normal
[2021-02-08] MEDS: ENOXAPARIN 40 MG/0.4 ML SYRINGE SUBCUT SCH (09:18)
[2021-02-08] MEDS: cloNIDine 0.1 MG TABLET PO SCH ×3 (09:19→20:54)
[2021-02-08] MEDS: INSULIN GLARGINE 100 UNIT/ML SUBCUT SCH (09:19)
[2021-02-08] MEDS: INSULIN LISPRO 100 UNIT/ML SUBCUT SCH ×4 (09:19→20:46)
[2021-02-08] MEDS: carvediloL 25 MG TABLET PO SCH ×2 (09:19→16:49)
[2021-02-08] MEDS: predniSONE 10 MG TABLET PO SCH ×2 (09:19→20:53)
[2021-02-08] MEDS: amLODIPine 10 MG TABLET PO SCH (09:19)
[2021-02-08] MEDS: FAMOTIDINE 20 MG TABLET PO SCH ×2 (09:19→20:53)
[2021-02-08] MEDS: GABAPENTIN 400 MG CAPSULE PO SCH ×3 (09:19→20:53)
[2021-02-08] MEDS: VANCOMYCIN INJ 1,250 MG in SODIUM CHLORIDE 0.9% 250 ML IV SCH (20:54)
[2021-02-09] MEDS: CEFEPIME 1,000 MG in SODIUM CHLORIDE 0.9% 100 ML IV SCH ×4 (00:01→17:10)
[2021-02-09] MEDS: MORPHINE 2 MG/1 ML SYRINGE IV PRN (01:38)
[2021-02-09] MEDS: ALBUTEROL/IPRATROPIUM 3 ML NEB RESP TX SCH ×4 (02:23→19:28)
[2021-02-09] MEDS: INSULIN LISPRO 100 UNIT/ML SUBCUT SCH ×4 (07:31→19:31)
[2021-02-09] MEDS: carvediloL 25 MG TABLET PO SCH ×2 (08:33→16:56)
[2021-02-09] MEDS: predniSONE 10 MG TABLET PO SCH ×3 (08:33→22:40)
[2021-02-09] MEDS: amLODIPine 10 MG TABLET PO SCH ×2 (08:33→08:40)
[2021-02-09] MEDS: FAMOTIDINE 20 MG TABLET PO SCH ×3 (08:33→22:40)
[2021-02-09] MEDS: cloNIDine 0.1 MG TABLET PO SCH ×4 (08:33→22:40)
[2021-02-09] MEDS: INSULIN GLARGINE 100 UNIT/ML SUBCUT SCH ×2 (08:34→08:40)
[2021-02-09] MEDS: GABAPENTIN 400 MG CAPSULE PO SCH ×4 (08:34→22:40)
[2021-02-09] MEDS: ENOXAPARIN 40 MG/0.4 ML SYRINGE SUBCUT SCH ×2 (08:35→08:41)
[2021-02-09 10:24] LABS: Basophils % 0.1 % (0.0-0.8); Eosinophils # 0.1 10*3/uL (0.0-0.87); Eosinophils % 0.4 % (0.00-10.9); Hematocrit 28.5 VOL% (42.0-52.0); Hemoglobin 8.8 GM/DL (14.0-18.0); Immature Granulocytes % 1.2 %; Immature Granulocytes Absolute 0.24 #; Lymphocytes # 2.4 10*3/uL (1.4-4.0); Lymphocytes % 12.4 % (21.2-54.2); Mean Corpuscular HGB Conc 30.9 GM/DL (32-36); Mean Platelet Volume 11.6 FL (9.6-12.0); Monocytes % 8.1 % (1.7-12.7); Neutrophils % 77.8 % (38.7-73.9); Platelet Count 377 T/CUMM (130-400); Red Blood Count 3.52 MC/CUMM (3.8-5.5); Red Cell Distribution Width 16.8 % (9.3-17.3); White Blood Count 19.2 T/CUMM (4-12)
[2021-02-09] MEDS: VANCOMYCIN INJ 1,250 MG in SODIUM CHLORIDE 0.9% 250 ML IV SCH (22:38)
[2021-02-10] MEDS: CEFEPIME 1,000 MG in SODIUM CHLORIDE 0.9% 100 ML IV SCH ×2 (01:00→06:15)
[2021-02-10] MEDS: ALBUTEROL/IPRATROPIUM 3 ML NEB RESP TX SCH ×2 (01:20→07:23)
[2021-02-10 05:19] LABS: Basophils % 0.1 % (0.0-0.8); Eosinophils # 0.1 10*3/uL (0.0-0.87); Eosinophils % 0.4 % (0.00-10.9); Hematocrit 29.9 VOL% (42.0-52.0); Hemoglobin 9.3 GM/DL (14.0-18.0); Immature Granulocytes % 1.2 %; Immature Granulocytes Absolute 0.19 #; Lymphocytes # 2.1 10*3/uL (1.4-4.0); Lymphocytes % 13.2 % (21.2-54.2); Mean Corpuscular HGB Conc 31.1 GM/DL (32-36); Mean Corpuscular Volume 81.5 FL (87-102); Mean Platelet Volume 11.5 FL (9.6-12.0); Monocytes % 7.3 % (1.7-12.7); Neutrophils % 77.8 % (38.7-73.9); Platelet Count 408 T/CUMM (130-400); Red Blood Count 3.67 MC/CUMM (3.8-5.5); White Blood Count 16.3 T/CUMM (4-12)
[2021-02-10 05:32] LABS: Calcium 8.6 MG/DL (8.5-10.1); Osmolality,Calculated 276.8 MOS/KG (273-304); Potassium 4.3 MMOL/L (3.5-5.1)
[2021-02-10 05:41] LABS: Hypochromasia 1+; Microcytosis 1+; Platelet Estimate Increased
[2021-02-10 07:57] VITALS: BP 136/93
[2021-02-10] MEDS: INSULIN LISPRO 100 UNIT/ML SUBCUT SCH (09:16)
[2021-02-10] MEDS: amLODIPine 10 MG TABLET PO SCH (10:20)
[2021-02-10] MEDS: predniSONE 10 MG TABLET PO SCH (10:20)
[2021-02-10] MEDS: cloNIDine 0.1 MG TABLET PO SCH (10:20)
[2021-02-10] MEDS: carvediloL 25 MG TABLET PO SCH (10:21)
[2021-02-10] MEDS: GABAPENTIN 400 MG CAPSULE PO SCH (10:21)
[2021-02-10] MEDS: FAMOTIDINE 20 MG TABLET PO SCH (10:21)
[2021-02-10] MEDS: ENOXAPARIN 40 MG/0.4 ML SYRINGE SUBCUT SCH (10:22)
[2021-02-10] MEDS: INSULIN GLARGINE 100 UNIT/ML SUBCUT SCH (10:23)
[2021-02-10] MEDS ORDERED: VANCOMYCIN INJ 1,250 MG in SODIUM CHLORIDE 0.9% 250 ML IV SCH (16:00)
== END 2021-02-10 10:45 | disposition home health service (06) | DRG 981 ==
LOC: EDBD → EDUNIT# → N.ED 05:39 → SUATTDRO 09:06 → N.EDINP 09:06 → N.ICU 09:44 → N.5E 02-07 16:01
PROVIDERS: ADMIT Family Medicine; ATTEND Internal Medicine Nephrology